=== PATIENT | female | born 1940 | race Caucasian/White ===

== ENCOUNTER 2017-08-09 18:07 | Inpatient (IN) | payer MEDICARE, OTHER ==
[2017-08-09] MEDS ORDERED: Albuterol/Ipratropium 3.0-0.5 MG/3 ML Neb Soln NEB ONE (19:21)
[2017-08-09] MEDS ORDERED: methylPREDNISolone Sodium Succinate 125 MG/2 ML SDV IVPUSH ONE (19:21)
[2017-08-09] MEDS: Sodium Chloride 0.9% 10 ML Syringe FLUSH PRN (19:50)
[2017-08-09] MEDS ORDERED: LORazepam 2 MG/ML SDV IVPUSH ONE (20:55)
--- NOTE | 2017-08-09 21:06 | EDM.PDOC ---
ED HPI GENERAL MEDICAL PROBLEM - General Chief Complaint: Respiratory Problem Stated Complaint: CLINIC SAYS SHE HAS PNEUMONIA Time Seen by Provider: 08/09/17 18:30 Source of Information: Reports: Patient, Family History Limitations: Reports: No Limitations - History of Present Illness INITIAL COMMENTS - FREE TEXT/NARRATIVE: c/o pneumonia pt with c/o cough x 5d productive of a small amount of sputum, no f/c/d, seen at [facility] and had a CxR done, dx with pneumonia, given Rx levofloxacin 500 mg daily and has taken one dose, given NS in clinic for BP 88/50 which is improved to 114/54 supine here altho still with inc'd pulse pressure pt has 2 children who are PAs, her children and think she needs to be admitted, to which I concur pt with multiple commorbidiites no fever at clinic or here, no inc'd WBC, has marked inc'd CRP 24.6 with no comparison which may be here RA altho currently with no RA flare has been quite weak, lost 6 lb in last week (in office 1w ago as well for med check and had her depression med dose inc'd) poor appetite quite anxious, is on an Ativan taper, currently at 0.5 mg BID did not want to be admitted, yet clearly meets criteria and is a high risk for d /c despite neg trop and BNP EKG with GERA and RAD 84, no ST changes labs all reviewed and d/w pt and her , no comparison labs has had flu vax and Pneumovax still smokes 1 ppd, h/o COPD, denies prior pneumonia unclear if infiltrate in LLL is pneumonia or whether she may have a mass Treatments LEGUILLON DEBEADER: Reports: Other Medication(s) Other Treatments LEGUILLON DEBEADER: levaquin - Related Data Allergies Allergy/AdvReac Type Severity Reaction Status Date / Time No Known Allergies Allergy Verified 08/09/17 18:41 Home Meds: Home Meds Folic Acid 1 mg PO DAILY 10/22/13 [History] InFLIXimab [Remicade] 100 mg IV ASDIRECTED 10/22/13 [History] Meloxicam [Mobic] 15 mg PO DAILY 10/22/13 [History] Methotrexate 10 tab PO ASDIRECTED 10/22/13 [History] Omeprazole 20 mg PO DAILY 10/22/13 [History] Simvastatin [Zocor] 10 mg PO DAILY 10/22/13 [History] Acetaminophen [Tylenol Arthritis Pain] 1,300 mg PO BID 10/23/13 [History] Multivitamin with Minerals [One Daily Plus Minerals] 1 each PO DAILY 10/23/13 [ History] LORazepam 0.5 mg PO DAILY PRN 08/09/17 [History] Ranitidine HCl [Ranitidine] 300 mg PO ASDIRECTED 08/09/17 [History] Sennosides 2 mg PO ASDIRECTED 08/09/17 [History] Sertraline [Zoloft] 50 mg PO DAILY 08/09/17 [History] Sertraline [Zoloft] 100 mg PO DAILY 08/09/17 [History] Past Medical History HEENT History: Reports: Cataract Respiratory History: Reports: COPD Gastrointestinal History: Reports: Cholelithiasis, GERD 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: Musculoskeletal History: Reports: Osteoarthritis, RA Psychiatric History: Reports: Anxiety, Depression - Infectious Disease History Infectious Disease History: Reports: Chicken Pox, Measles, Mumps - Past Surgical History HEENT Surgical History: Reports: Cataract Surgery, Tonsillectomy GI Surgical History: Reports: Cholecystectomy Female Surgical History: Reports: Hysterectomy Social & Family History - Family History Family Medical History: Noncontributory - Tobacco Use Smoking Status *Q: Current Every Day Smoker Years of Tobacco use: 40 Packs/Tins Daily: 1 Second Hand Smoke Exposure: Yes - Caffeine Use Caffeine Use: Reports: Soda - Alcohol Use Days Per Week of Alcohol Use: 3 Number of Drinks Per Day: 0 Total Drinks Per Week: 0 - Recreational Drug Use Recreational Drug Use: No ED ROS GENERAL - Review of Systems Review Of Systems: See Below Constitutional: Reports: Weakness, Fatigue, Decreased Appetite, Weight Loss. Denies: Fever, Chills, Night Sweats, Diaphoresis HEENT: Reports: No Symptoms Respiratory: Reports: Shortness of Breath, Cough, Sputum Cardiovascular: Denies: Chest Pain Endocrine: Reports: Fatigue GI/Abdominal: Reports: No Symptoms : Reports: No Symptoms Musculoskeletal: Reports: No Symptoms Skin: Reports: No Symptoms Neurological: Reports: No Symptoms Psychiatric: Reports: Anxiety Hematologic/Lymphatic: Reports: No Symptoms Immunologic: Reports: No Symptoms ED EXAM, GENERAL - Physical Exam Exam: See Below Exam Limited By: No Limitations General Appearance: Alert, WD/WN, Mild Distress, Other (mild dyspnea, mild tachypnea, quite weak, difficulty sitting by herself) Eye Exam: Bilateral Eye: Normal Inspection Ears: Normal External Exam, Normal Canal Nose: Normal Inspection, Normal Mucosa, No Blood Throat/Mouth: Normal Inspection, Normal Lips, Normal Teeth, Normal Gums, Normal Oropharynx, Normal Voice, No Airway Compromise Head: Atraumatic, Normocephalic Neck: Normal Inspection, Supple, Non-Tender, Full Range of Motion Respiratory/Chest: Other (fair AE, crackles at bases with L>R, using accesory muscles, slight purse lip breathing, no retracitons, scattered wheezes, symmetric AE) Cardiovascular: Regular Rate, Rhythm, No Edema, No Gallop, No Rub, Other (2/6 DANY at LSB) GI/Abdominal: Soft, Non-Tender, No Distention Back Exam: Normal Inspection, Full Range of Motion, NT Extremities: Normal Inspection, Normal Range of Motion, Non-Tender, No Pedal Edema Neurological: Alert, Oriented, CN II-XII Intact, Normal Cognition, No Motor/ Sensory Deficits Psychiatric: Normal Affect, Normal Mood Skin Exam: Warm, Dry, Intact, Normal Color, No Rash, Other (mild dec'd turgor UEs) Lymphatic: No Adenopathy Course - Vital Signs Last Recorded V/S: Last Vital Signs Temp 36.5 C 08/09/17 18:42 Pulse 75 08/09/17 18:42 Resp 24 H 08/09/17 18:42 BP 114/54 L 08/09/17 18:42 Pulse Ox 95 08/09/17 18:42 - Orders/Labs/Meds Orders: Active Orders 24 hr Category Date Time Status EKG Documentation Completion [RC] ASDIRECTED Care 08/09/17 19:18 Active RT Aerosol Therapy [RC] ASDIRECTED Care 08/09/17 19:21 Active Chest 2V [CR] Stat Exams 08/09/17 19:21 Taken CULTURE BLOOD [BC] Urgent Lab 08/09/17 19:25 Received CULTURE BLOOD [BC] Urgent Lab 08/09/17 19:31 Received Sodium Chloride 0.9% [Saline Flush] Med 08/09/17 19:29 Active 10 ml FLUSH ASDIRECTED PRN Blood Culture x2 Reflex Set [OM.PC] Urgent Oth 08/09/17 19:24 Ordered Saline Lock Insert [OM.PC] Routine Oth 08/09/17 19:29 Ordered EKG 12 Lead [EK] Routine Ther 08/09/17 19:17 Ordered Medication Orders Sodium Chloride (Saline Flush) 10 ml FLUSH ASDIRECTED PRN PRN Reason: Keep Vein Open Last Admin: 08/09/17 19:50 Dose: 10 ml Labs: Laboratory Tests 08/09/17 08/09/17 08/09/17 Range/Units 19:25 19:25 19:25 WBC 7.8 (4.5-12.0) X10-3/uL RBC 3.20 L (3.23-5.20) x10(6)uL Hgb 12.4 (11.5-15.5) g/dL Hct 34.5 (30.0-51.3) % MCV 107.9 H (80-96) fL MCH 38.8 H (27.7-33.6) pg MCHC 36.0 H (32.2-35.4) g/dL RDW 13.1 (11.5-15.5) % Plt Count 153 (125-369) X10(3)uL MPV 7.4 (7.4-10.4) fL Add Manual Diff Yes Neutrophils % (Manual) 77 (46-82) % Band Neutrophils % 3 (0-6) % Lymphocytes % (Manual) 12 L (13-37) % Monocytes % (Manual) 8 (4-12) % Macrocytosis Many H POC VBG pH (7.31-7.41) POC VBG pCO2 (41-51) mmHG POC VBG HCO3 (23-28) mmol/L POC VBG Total CO2 (24-29) mmol/L POC VBG Base Excess (-2-3) mmol/L Sodium 137 (135-145) mmol/L Potassium 3.2 L (3.5-5.3) mmol/L Chloride 99 L (100-110) mmol/L Carbon Dioxide 28 (21-32) mmol/L BUN 32 H (7-18) mg/dL Creatinine 1.0 (0.55-1.02) mg/dL Est Cr Clr Drug Dosing 39.81 mL/min Estimated GFR (MDRD) 54 L (>60) BUN/Creatinine Ratio 32.0 H (9-20) Glucose 96 (80-116) mg/dL Lactic Acid (0.4-2.2) mmol/L Calcium 8.4 L (8.6-10.2) mg/dL Magnesium (1.8-2.5) mg/dL Total Bilirubin 0.4 (0.1-1.3) mg/dL AST 24 (5-25) IU/L ALT 26 (12-36) U/L Alkaline Phosphatase 59 (56-112) IU/L Troponin I < 0.017 L (<0.017-0.056) ng/mL C-Reactive Protein 24.6 H* (0.5-0.9) mg/dL NT-Pro-B Natriuret Pep 315 (<=450) pg/mL Total Protein 6.5 (6.0-8.0) g/dL Albumin 2.5 L (3.2-4.6) g/dL Globulin 4.0 g/dL Albumin/Globulin Ratio 0.6 08/09/17 08/09/17 08/09/17 Range/Units 19:25 19:25 19:25 WBC (4.5-12.0) X10-3/uL RBC (3.23-5.20) x10(6)uL Hgb (11.5-15.5) g/dL Hct (30.0-51.3) % MCV (80-96) fL MCH (27.7-33.6) pg MCHC (32.2-35.4) g/dL RDW (11.5-15.5) % Plt Count (125-369) X10(3)uL MPV (7.4-10.4) fL Add Manual Diff Neutrophils % (Manual) (46-82) % Band Neutrophils % (0-6) % Lymphocytes % (Manual) (13-37) % Monocytes % (Manual) (4-12) % Macrocytosis POC VBG pH 7.51 H (7.31-7.41) POC VBG pCO2 32.6 L (41-51) mmHG POC VBG HCO3 25.9 (23-28) mmol/L POC VBG Total CO2 27 (24-29) mmol/L POC VBG Base Excess 3 (-2-3) mmol/L Sodium (135-145) mmol/L Potassium (3.5-5.3) mmol/L Chloride (100-110) mmol/L Carbon Dioxide (21-32) mmol/L BUN (7-18) mg/dL Creatinine (0.55-1.02) mg/dL Est Cr Clr Drug Dosing mL/min Estimated GFR (MDRD) (>60) BUN/Creatinine Ratio (9-20) Glucose (80-116) mg/dL Lactic Acid 0.6 (0.4-2.2) mmol/L Calcium (8.6-10.2) mg/dL Magnesium 1.3 L (1.8-2.5) mg/dL Total Bilirubin (0.1-1.3) mg/dL AST (5-25) IU/L ALT (12-36) U/L Alkaline Phosphatase (56-112) IU/L Troponin I (<0.017-0.056) ng/mL C-Reactive Protein (0.5-0.9) mg/dL NT-Pro-B Natriuret Pep (<=450) pg/mL Total Protein (6.0-8.0) g/dL Albumin (3.2-4.6) g/dL Globulin g/dL Albumin/Globulin Ratio Meds: Medications Generic Name Dose Route Start Last Admin Trade Name Freq PRN Reason Stop Dose Admin Sodium Chloride 10 ml 08/09/17 19:29 08/09/17 19:50 Saline Flush FLUSH 10 ml ASDIRECTED PRN Administration Keep Vein Open Discontinued Medications Generic Name Dose Route Start Last Admin Trade Name Freq PRN Reason Stop Dose Admin Albuterol/Ipratropium 3 ml 08/09/17 19:21 08/09/17 20:03 Duoneb 3.0-0.5 Mg/3 Ml NEB 08/09/17 19:22 3 ml ONETIME ONE Administration Lorazepam 1 mg 08/09/17 20:55 Ativan IVPUSH 08/09/17 20:56 ONETIME ONE Methylprednisolone Sodium Succinate 80 mg 08/09/17 19:21 08/09/17 19:52 Solu-Medrol IVPUSH 08/09/17 19:22 80 mg ONETIME ONE Administration Departure - Departure Time of Disposition: 21:12 Disposition: Admitted As Inpatient 66 Condition: Fair Clinical Impression: Left lower lobe pneumonia, Lung infiltrate, COPD exacerbation, Hyponatremia, Hypomagnesemia, Weight loss, Immunosuppressed status, Current smoker, Dehydration, moderate, Hypotension, Hypoalbuminemia, Elevated C-reactive protein (CRP), Elevated BUN, Macrocytosis without anemia, Weakness generalized - Discharge Information Referrals: Bailey Rainey, DIGITIZER OPERATOR [Primary Care Provider] - - My Orders Last 24 Hours: My Active Orders 08/09/17 19:17 EKG 12 Lead [EK] Routine 08/09/17 19:18 EKG Documentation Completion [RC] ASDIRECTED 08/09/17 19:21 RT Aerosol Therapy [RC] ASDIRECTED Chest 2V [CR] Stat 08/09/17 19:24 Blood Culture x2 Reflex Set [OM.PC] Urgent 08/09/17 19:25 CULTURE BLOOD [BC] Urgent 08/09/17 19:29 Sodium Chloride 0.9% [Saline Flush] 10 ml FLUSH ASDIRECTED PRN Saline Lock Insert [OM.PC] Routine 08/09/17 19:31 CULTURE BLOOD [BC] Urgent - Assessment/Plan Last 24 Hours: My Active Orders 08/09/17 19:17 EKG 12 Lead [EK] Routine 08/09/17 19:18 EKG Documentation Completion [RC] ASDIRECTED 08/09/17 19:21 RT Aerosol Therapy [RC] ASDIRECTED Chest 2V [CR] Stat 08/09/17 19:24 Blood Culture x2 Reflex Set [OM.PC] Urgent 08/09/17 19:25 CULTURE BLOOD [BC] Urgent 08/09/17 19:29 Sodium Chloride 0.9% [Saline Flush] 10 ml FLUSH ASDIRECTED PRN Saline Lock Insert [OM.PC] Routine 08/09/17 19:31 CULTURE BLOOD [BC] Urgent
[2017-08-09] MEDS ORDERED: Albuterol 0.083% 2.5 MG/3 ML Neb Soln NEB PRN (21:12)
[2017-08-09] MEDS ORDERED: Acetaminophen 325 MG Tab PO PRN (21:12)
[2017-08-09] MEDS ORDERED: Zolpidem 5 MG Tab PO PRN (21:12)
[2017-08-09] MEDS ORDERED: Ondansetron 4 MG/2 ML SDV IV PRN (21:12)
[2017-08-09] MEDS ORDERED: LORazepam 0.5 MG Tab PO PRN (21:23)
[2017-08-09] MEDS ORDERED: Potassium Chloride 20 MEQ Tab.ER PO ONE (21:29)
[2017-08-09] MEDS ORDERED: RANITIDINE HCL 300 MG PO SCH (21:30)
[2017-08-09] MEDS ORDERED: Levofloxacin 500 MG Tab PO SCH (21:30)
[2017-08-09] MEDS ORDERED: Sennosides 8.6 MG Tab PO SCH (21:30)
[2017-08-09] MEDS ORDERED: Methotrexate 2.5 MG Tab PO SCH (21:30)
[2017-08-09] MEDS ORDERED: Magnesium Sulfate/Water 50 ML ONE (21:40)
[2017-08-09] MEDS: Sodium Chloride 0.9% 1,000 ML IV SCH (21:55)
[2017-08-09] MEDS: Enoxaparin 30 MG/0.3 ML Syringe SUBCUT SCH (21:58)
[2017-08-09] MEDS: Acetaminophen 650 MG Tab.ER PO SCH (22:01)
[2017-08-09] MEDS ORDERED: Magnesium Sulfate/Water 50 ML IV ONE (23:00)
[2017-08-10] MEDS ORDERED: Levofloxacin/Dextrose 5%-Water 750 MG in Premix Bag 1 BAG IV SCH (07:45)
--- NOTE | 2017-08-10 07:46 | PCM.HP ---
H&P History of Present Illness - General Date of Service: 08/10/17 Admit Problem/Dx: Admission Diagnosis/Problem Admission Diagnosis/Problem Pneumonia - History of Present Illness Initial Comments - Free Text/Narative: Pleasant 77-year-old female who resides in her own home with her who is diligent her cares. States she has been having increased weakness with a cough that is productive change in sputum color roughly the last week. She wasn't having any fevers or chills by her appetite is significantly decreased and she wasn't taking in much for fluids. Respirations became slightly more labored and she was taken to her local [facility] where chest x-ray was consistent with early onset pneumonia in the setting of COPD. She was started on oral Levaquin 500 mg daily. She was sent home and is taken one dose of her antibiotic and over the course of the evening she does not feel any improvement and also became more weak when she presented back to the clinic. At that point she was noted to be slightly hypotensive and received a normal saline bolus while at the clinic due to a low blood pressure reported as 88/50 mmHg that did improve to greater than 115 systolic. There was no significant tachycardia or bradycardia noted on EKG and sats remained in the low 90s. That point, it was deemed she be evaluated in the ER where his CRP was noted to be elevated to 24.6 with a background setting of rheumatoid arthritis. She's remained afebrile with normal white count. According to family depression has worsened over the last several weeks for which she has had significant decreased appetite along with somnolence. This is resulted in roughly a 6 pound weight loss in the last week. She is currently being titrated on sertraline with a recent increased dose from 100 mg daily to 150 mg daily. She also has underlying anxiety for which she has been on lorazepam long-term however this is being tapered as her SSRI is increased. Severe comorbidities include COPD with continued tobacco smoking a pack per day , known hyperinflation and air trapping of the lungs, cardiovascular disease, rheumatologic disease, malnutrition, depression worsening with underlying anxiety, active infection, mild dehydration, iatrogenic suppression and polypharmacy. - Related Data Allergies/Adverse Reactions: Allergies Allergy/AdvReac Type Severity Reaction Status Date / Time No Known Allergies Allergy Verified 08/09/17 18:41 Home Medications: Home Meds Folic Acid 1 mg PO DAILY 10/22/13 [History] InFLIXimab [Remicade] 400 mg IV ASDIRECTED 10/22/13 [History] Meloxicam [Mobic] 15 mg PO DAILY 10/22/13 [History] Methotrexate 17.5 mg PO VICENTE 10/22/13 [History] Omeprazole 20 mg PO ACBREAKFAST 10/22/13 [History] Simvastatin [Zocor] 10 mg PO DAILY@1800 10/22/13 [History] Acetaminophen [Tylenol Arthritis Pain] 1,300 mg PO BID PRN 10/23/13 [History] LORazepam 0.5 mg PO DAILY PRN 08/09/17 [History] Ranitidine HCl [Ranitidine] 300 mg PO BEDTIME 08/09/17 [History] Sertraline [Zoloft] 150 mg PO DAILY@1800 08/09/17 [History] Advair Hfa 115/21 2 puff IH BID 08/10/17 [History] Beta-Carotene(A) W-C & E/Min [Vision Vitamins] 1 tab PO DAILY 08/10/17 [History] Calcium Carbonate/Vitamin D3 [Calcium 500-Vit D3 600 Caplet] 1 tab PO BIDMEALS 08/10/17 [History] Cyanocobalamin (Vitamin B-12) [Vitamin B-12] 1,000 mcg PO DAILY 08/10/17 [ History] Magnesium Oxide [Magnesium] 400 mg PO DAILY 08/10/17 [History] Sennosides/Docusate Sodium [Senna S Tablet] 2 tab PO DAILY PRN 08/10/17 [History ] Past Medical History HEENT History: Reports: Cataract Respiratory History: Reports: COPD Gastrointestinal History: Reports: Cholelithiasis, [employer] History: Reports: Musculoskeletal History: Reports: Osteoarthritis, RA Psychiatric History: Reports: Anxiety, Depression - Infectious Disease History Infectious Disease History: Reports: Chicken Pox, Measles, Mumps - Past Surgical History HEENT Surgical History: Reports: Cataract Surgery, Tonsillectomy GI Surgical History: Reports: Cholecystectomy Female Surgical History: Reports: Hysterectomy Social & Family History - Family History Family Medical History: Noncontributory - Tobacco Use Smoking Status *Q: Light Tobacco Smoker Years of Tobacco use: 40 Packs/Tins Daily: 2 Second Hand Smoke Exposure: No - Caffeine Use Caffeine Use: Reports: Coffee, Soda Other Caffeine Use: 2-4 per day - Alcohol Use Days Per Week of Alcohol Use: 3 Number of Drinks Per Day: 0 Total Drinks Per Week: 0 - Recreational Drug Use Recreational Drug Use: No H&P Review of Systems - Review of Systems: Review Of Systems: See Below Review of Systems Comment:: Constitutional: Reports: Weakness, Fatigue, Decreased Appetite, Weight Loss. Denies: Fever, Chills, Night Sweats, Diaphoresis HEENT: Reports: No Symptoms Respiratory: Reports: Shortness of Breath, Cough, Sputum Cardiovascular: Denies: Chest Pain Endocrine: Reports: Fatigue GI/Abdominal: Reports: No Symptoms : Reports: No Symptoms Musculoskeletal: Reports: No Symptoms Skin: Reports: No Symptoms Neurological: Reports: No Symptoms Psychiatric: Reports: Anxiety, depression Hematologic/Lymphatic: Reports: No Symptoms Immunologic: Reports: No joint swelling, aching, warmth or redness Exam - Exam Exam: See Below - Vital Signs Vital Signs: Last Vital Signs Temp 97 F 08/10/17 04:00 Pulse 74 08/10/17 04:00 Resp 16 08/10/17 04:00 BP 111/63 08/10/17 04:00 Pulse Ox 98 08/10/17 04:00 Weight: 54.93 kg - Exam Physical Exam Comments:: Exam Limited By: No Limitations; and son in room also provide information and medication review with printout from clinic. General Appearance: Alert, mild dyspnea, mild tachypnea, quite weak, difficulty sitting by herself) Eye Exam: Bilateral Eye: Normal Inspection Nose: No Blood Throat/Mouth: Normal Oropharynx, Normal Voice, No Airway Compromise, Dry MM Head: Atraumatic, Normocephalic Neck: Normal Inspection, Supple, Non-Tender, Full Range of Motion, trachea midline Respiratory/Chest: Diminished aeration throughout due to poor inspiratory effort , crackles at bases with L>R, this time with oxygen on she is not using accessory muscles and there are no retractions. She does have minimal scattered expiratory wheezes. No friction rub or chest wall tenderness. Cardiovascular: Regular Rate, Rhythm, No Edema, No Gallop, No Rub, (2/6 DANY at LSB) GI/Abdominal: Soft, Non-Tender, No Distention, normal bowel sounds throughout Back Exam: NT Extremities: Non-Tender, No Pedal Edema Neurological: Alert, Oriented, CN II-XII Intact, Normal Cognition, No Motor/ Sensory Deficits Psychiatric: Slightly flattened affect and depressed mood. Pleasant and conversant. Skin Exam: Warm, Dry, Intact, Normal Color, No Rash, (mild dec'd turgor UEs) Lymphatic: No Adenopathy - Patient Data Lab Results Last 24 hrs: Laboratory Results - last 24 hr 08/09/17 08/09/17 08/09/17 Range/Units 19:25 19:25 19:25 WBC 7.8 (4.5-12.0) X10-3/uL RBC 3.20 L (3.23-5.20) x10(6)uL Hgb 12.4 (11.5-15.5) g/dL Hct 34.5 (30.0-51.3) % MCV 107.9 H (80-96) fL MCH 38.8 H (27.7-33.6) pg MCHC 36.0 H (32.2-35.4) g/dL RDW 13.1 (11.5-15.5) % Plt Count 153 (125-369) X10(3)uL MPV 7.4 (7.4-10.4) fL Add Manual Diff Yes Neutrophils % (Manual) 77 (46-82) % Band Neutrophils % 3 (0-6) % Lymphocytes % (Manual) 12 L (13-37) % Monocytes % (Manual) 8 (4-12) % Macrocytosis Many H POC VBG pH (7.31-7.41) POC VBG pCO2 (41-51) mmHG POC VBG HCO3 (23-28) mmol/L POC VBG Total CO2 (24-29) mmol/L POC VBG Base Excess (-2-3) mmol/L Sodium 137 (135-145) mmol/L Potassium 3.2 L (3.5-5.3) mmol/L Chloride 99 L (100-110) mmol/L Carbon Dioxide 28 (21-32) mmol/L BUN 32 H (7-18) mg/dL Creatinine 1.0 (0.55-1.02) mg/dL Est Cr Clr Drug Dosing 39.81 mL/min Estimated GFR (MDRD) 54 L (>60) BUN/Creatinine Ratio 32.0 H (9-20) Glucose 96 (80-116) mg/dL Lactic Acid (0.4-2.2) mmol/L Calcium 8.4 L (8.6-10.2) mg/dL Magnesium (1.8-2.5) mg/dL Total Bilirubin 0.4 (0.1-1.3) mg/dL AST 24 (5-25) IU/L ALT 26 (12-36) U/L Alkaline Phosphatase 59 (56-112) IU/L Troponin I < 0.017 L (<0.017-0.056) ng/mL C-Reactive Protein 24.6 H* (0.5-0.9) mg/dL NT-Pro-B Natriuret Pep 315 (<=450) pg/mL Total Protein 6.5 (6.0-8.0) g/dL Albumin 2.5 L (3.2-4.6) g/dL Globulin 4.0 g/dL Albumin/Globulin Ratio 0.6 TSH, Ultra Sensitive (0.36-3.74) IU/mL 08/09/17 08/09/17 08/09/17 Range/Units 19:25 19:25 19:25 WBC (4.5-12.0) X10-3/uL RBC (3.23-5.20) x10(6)uL Hgb (11.5-15.5) g/dL Hct (30.0-51.3) % MCV (80-96) fL MCH (27.7-33.6) pg MCHC (32.2-35.4) g/dL RDW (11.5-15.5) % Plt Count (125-369) X10(3)uL MPV (7.4-10.4) fL Add Manual Diff Neutrophils % (Manual) (46-82) % Band Neutrophils % (0-6) % Lymphocytes % (Manual) (13-37) % Monocytes % (Manual) (4-12) % Macrocytosis POC VBG pH 7.51 H (7.31-7.41) POC VBG pCO2 32.6 L (41-51) mmHG POC VBG HCO3 25.9 (23-28) mmol/L POC VBG Total CO2 27 (24-29) mmol/L POC VBG Base Excess 3 (-2-3) mmol/L Sodium (135-145) mmol/L Potassium (3.5-5.3) mmol/L Chloride (100-110) mmol/L Carbon Dioxide (21-32) mmol/L BUN (7-18) mg/dL Creatinine (0.55-1.02) mg/dL Est Cr Clr Drug Dosing mL/min Estimated GFR (MDRD) (>60) BUN/Creatinine Ratio (9-20) Glucose (80-116) mg/dL Lactic Acid 0.6 (0.4-2.2) mmol/L Calcium (8.6-10.2) mg/dL Magnesium 1.3 L (1.8-2.5) mg/dL Total Bilirubin (0.1-1.3) mg/dL AST (5-25) IU/L ALT (12-36) U/L Alkaline Phosphatase (56-112) IU/L Troponin I (<0.017-0.056) ng/mL C-Reactive Protein (0.5-0.9) mg/dL NT-Pro-B Natriuret Pep (<=450) pg/mL Total Protein (6.0-8.0) g/dL Albumin (3.2-4.6) g/dL Globulin g/dL Albumin/Globulin Ratio TSH, Ultra Sensitive (0.36-3.74) IU/mL 08/10/17 08/10/17 08/10/17 Range/Units 06:05 06:05 06:05 WBC 5.0 (4.5-12.0) X10-3/uL RBC 3.17 L (3.23-5.20) x10(6)uL Hgb 12.2 (11.5-15.5) g/dL Hct 33.7 (30.0-51.3) % MCV 106.5 H (80-96) fL MCH 38.5 H (27.7-33.6) pg MCHC 36.1 H (32.2-35.4) g/dL RDW 12.9 (11.5-15.5) % Plt Count 148 (125-369) X10(3)uL MPV 7.7 (7.4-10.4) fL Add Manual Diff Yes Neutrophils % (Manual) (46-82) % Band Neutrophils % (0-6) % Lymphocytes % (Manual) (13-37) % Monocytes % (Manual) (4-12) % Macrocytosis POC VBG pH (7.31-7.41) POC VBG pCO2 (41-51) mmHG POC VBG HCO3 (23-28) mmol/L POC VBG Total CO2 (24-29) mmol/L POC VBG Base Excess (-2-3) mmol/L Sodium 139 (135-145) mmol/L Potassium 3.9 (3.5-5.3) mmol/L Chloride 102 (100-110) mmol/L Carbon Dioxide 30 (21-32) mmol/L BUN 30 H (7-18) mg/dL Creatinine 0.9 (0.55-1.02) mg/dL Est Cr Clr Drug Dosing 45.20 mL/min Estimated GFR (MDRD) > 60 (>60) BUN/Creatinine Ratio 33.3 H (9-20) Glucose 158 H (80-116) mg/dL Lactic Acid (0.4-2.2) mmol/L Calcium 8.5 L (8.6-10.2) mg/dL Magnesium (1.8-2.5) mg/dL Total Bilirubin (0.1-1.3) mg/dL AST (5-25) IU/L ALT (12-36) U/L Alkaline Phosphatase (56-112) IU/L Troponin I < 0.017 L (<0.017-0.056) ng/mL C-Reactive Protein (0.5-0.9) mg/dL NT-Pro-B Natriuret Pep (<=450) pg/mL Total Protein (6.0-8.0) g/dL Albumin (3.2-4.6) g/dL Globulin g/dL Albumin/Globulin Ratio TSH, Ultra Sensitive (0.36-3.74) IU/mL 08/10/17 Range/Units 06:05 WBC (4.5-12.0) X10-3/uL RBC (3.23-5.20) x10(6)uL Hgb (11.5-15.5) g/dL Hct (30.0-51.3) % MCV (80-96) fL MCH (27.7-33.6) pg MCHC (32.2-35.4) g/dL RDW (11.5-15.5) % Plt Count (125-369) X10(3)uL MPV (7.4-10.4) fL Add Manual Diff Neutrophils % (Manual) (46-82) % Band Neutrophils % (0-6) % Lymphocytes % (Manual) (13-37) % Monocytes % (Manual) (4-12) % Macrocytosis POC VBG pH (7.31-7.41) POC VBG pCO2 (41-51) mmHG POC VBG HCO3 (23-28) mmol/L POC VBG Total CO2 (24-29) mmol/L POC VBG Base Excess (-2-3) mmol/L Sodium (135-145) mmol/L Potassium (3.5-5.3) mmol/L Chloride (100-110) mmol/L Carbon Dioxide (21-32) mmol/L BUN (7-18) mg/dL Creatinine (0.55-1.02) mg/dL Est Cr Clr Drug Dosing mL/min Estimated GFR (MDRD) (>60) BUN/Creatinine Ratio (9-20) Glucose (80-116) mg/dL Lactic Acid (0.4-2.2) mmol/L Calcium (8.6-10.2) mg/dL Magnesium (1.8-2.5) mg/dL Total Bilirubin (0.1-1.3) mg/dL AST (5-25) IU/L ALT (12-36) U/L Alkaline Phosphatase (56-112) IU/L Troponin I (<0.017-0.056) ng/mL C-Reactive Protein (0.5-0.9) mg/dL NT-Pro-B Natriuret Pep (<=450) pg/mL Total Protein (6.0-8.0) g/dL Albumin (3.2-4.6) g/dL Globulin g/dL Albumin/Globulin Ratio TSH, Ultra Sensitive 1.10 (0.36-3.74) IU/mL Result Diagrams: 08/11/17 06:40 08/11/17 06:40 - Problem List (1) Left lower lobe pneumonia SNOMED Code(s): 607672972 ICD Code: J18.1 - LOBAR PNEUMONIA, UNSPECIFIED ORGANISM Status: Acute Current Visit: Yes (2) COPD exacerbation SNOMED Code(s): 137907648 ICD Code: J44.1 - CHRONIC OBSTRUCTIVE PULMONARY DISEASE W (ACUTE) EXACERBATION Status: Acute Current Visit: Yes (3) Dehydration, moderate SNOMED Code(s): 4545339247955 ICD Code: E86.0 - DEHYDRATION Status: Acute Current Visit: Yes (4) Hypotension SNOMED Code(s): 50238024 ICD Code: I95.9 - HYPOTENSION, UNSPECIFIED Status: Acute Current Visit: Yes (5) Immunosuppressed status SNOMED Code(s): 98541776 ICD Code: D89.9 - DISORDER INVOLVING THE IMMUNE MECHANISM, UNSPECIFIED Status: Acute Current Visit: Yes (6) Hyponatremia SNOMED Code(s): 09183734 ICD Code: E87.1 - HYPO-OSMOLALITY AND HYPONATREMIA Status: Acute Current Visit: Yes (7) Hypomagnesemia SNOMED Code(s): 940470452 ICD Code: E83.42 - HYPOMAGNESEMIA Status: Acute Current Visit: Yes (8) Weight loss SNOMED Code(s): 97386530, 056589773 ICD Code: R63.4 - ABNORMAL WEIGHT LOSS Status: Acute Current Visit: Yes (9) Current smoker SNOMED Code(s): 09427152 ICD Code: F17.200 - NICOTINE DEPENDENCE, UNSPECIFIED, UNCOMPLICATED Status : Acute Current Visit: Yes (10) Hypoalbuminemia SNOMED Code(s): 547150847 ICD Code: E88.09 - OTH DISORDERS OF PLASMA-PROTEIN METABOLISM, NEC Status: Acute Current Visit: Yes (11) Elevated C-reactive protein (CRP) SNOMED Code(s): 606634351717723 ICD Code: R79.82 - ELEVATED C-REACTIVE PROTEIN (CRP) Status: Acute Current Visit: Yes (12) Palliative care status SNOMED Code(s): 858490437 ICD Code: Z51.5 - ENCOUNTER FOR PALLIATIVE CARE Status: Acute Current Visit: Yes (13) Elevated BUN SNOMED Code(s): 078983521 ICD Code: R79.9 - ABNORMAL FINDING OF BLOOD CHEMISTRY, UNSPECIFIED Status: Acute Current Visit: Yes (14) Macrocytosis without anemia SNOMED Code(s): 742144448 ICD Code: D75.89 - OTHER SPECIFIED DISEASES OF BLOOD AND BLOOD-FORMING ORGANS Status: Acute Current Visit: Yes (15) Weakness generalized SNOMED Code(s): 66687420 ICD Code: R53.1 - WEAKNESS Status: Acute Current Visit: Yes Problem List Initiated/Reviewed/Updated: Yes Orders Last 24hrs: Active Orders 24 hr Category Date Time Status Patient Status [ADT] Routine ADT 08/09/17 23:28 Active Communication Order [RC] ASDIRECTED Care 08/10/17 07:40 Ordered Dietary Supplements [RC] 10,14 Care 08/09/17 21:26 Active Notify Provider [RC] PRN Care 08/10/17 07:40 Ordered Oxygen Therapy [RC] PRN Care 08/09/17 21:19 Active Pneumonia Education [RC] DAILY Care 08/10/17 07:40 Ordered Pulse Oximetry [RC] CONTINUOUS Care 08/10/17 07:40 Ordered RT Aerosol Therapy [RC] ASDIRECTED Care 08/09/17 19:21 Active RT Incentive Spirometry [RC] Q2HWA Care 08/10/17 07:40 Ordered Telemetry Monitoring [Cardiac Monitoring] [RC] .As Care 08/09/17 23:30 Active Directed Vital Signs [RC] 04,08,12,16,20,00 Care 08/09/17 21:19 Active Regular Diet [DIET] Diet 08/10/17 Breakfast Active Chest 2V [CR] Stat Exams 08/09/17 19:21 Taken BASIC METABOLIC PANEL,BMP [CHEM] DAILY Lab 08/11/17 06:00 Ordered BASIC METABOLIC PANEL,BMP [CHEM] DAILY Lab 08/12/17 06:00 Ordered BASIC METABOLIC PANEL,BMP [CHEM] DAILY Lab 08/13/17 06:00 Ordered BASIC METABOLIC PANEL,BMP [CHEM] DAILY Lab 08/14/17 06:00 Ordered BLOOD GAS ARTERIAL [BG] Routine Lab 08/10/17 07:40 Ordered CBC WITH AUTO DIFF [HEME] DAILY Lab 08/10/17 06:05 Results CBC WITH AUTO DIFF [HEME] DAILY Lab 08/11/17 06:00 Ordered CULTURE BLOOD [BC] Urgent Lab 08/09/17 19:25 Received CULTURE BLOOD [BC] Urgent Lab 08/09/17 19:31 Received Acetaminophen [Tylenol Arthritis Pain] Med 08/09/17 21:30 Active 1,300 mg PO BID Acetaminophen [Tylenol] Med 08/09/17 21:12 Active 650 mg PO Q4H PRN Albuterol [Proventil Neb Soln] Med 08/09/17 21:12 Active 2.5 mg NEB Q4H PRN Albuterol/Ipratropium [DuoNeb 3.0-0.5 MG/3 ML] Med 08/10/17 07:00 Active 3 ml NEB QIDRT Enoxaparin [Lovenox] Med 08/09/17 21:15 Active 30 mg SUBCUT Q24H Folic Acid Med 08/10/17 09:00 Active 1 mg PO DAILY InFLIXimab [Remicade] Med 08/09/17 21:30 Pending 100 mg IV ASDIRECTED LORazepam [Ativan] Med 08/09/17 21:23 Active 0.5 mg PO BID PRN Levofloxacin [Levaquin] Med 08/10/17 12:00 Active 500 mg PO Q24H Levofloxacin/Dextrose 5%-Water [Levaquin in D5W 750 MG/ Med 08/10/17 07:45 Ordered 150 ML] 750 mg Premix Bag 1 bag IV Q48H Meloxicam [Mobic] Med 08/10/17 09:00 Active 15 mg PO DAILY Methotrexate Med 08/09/17 21:30 Pending DOSE mg PO ASDIRECTED Multivitamins/Minerals [Vitamins and Minerals] Med 08/10/17 09:00 Active 1 tab PO DAILY Ondansetron [Zofran] Med 08/09/17 21:12 Active 4 mg IV Q4H PRN Pantoprazole [ProTONIX] Med 08/10/17 07:30 Active 40 mg PO ACBREAKFAST Potassium Chloride [Klor-Con M20] Med 08/10/17 09:00 Active 20 meq PO BID Ranitidine HCl [Ranitidine] Med 08/09/17 21:30 Active 300 mg PO ASDIRECTED Sennosides [Senna] Med 08/09/17 21:30 Active 2 mg PO ASDIRECTED Sertraline [Zoloft] Med 08/10/17 09:00 Active 100 mg PO DAILY Simvastatin [Zocor] Med 08/10/17 09:00 Active 10 mg PO DAILY Sodium Chloride 0.9% [Normal Saline] 1,000 ml Med 08/09/17 21:15 Active IV ASDIRECTED Sodium Chloride 0.9% [Saline Flush] Med 08/09/17 19:29 Active 10 ml FLUSH ASDIRECTED PRN Zolpidem [Ambien] Med 08/09/17 21:12 Active 5 mg PO BEDTIME PRN methylPREDNISolone Sod Succ [Solu-MEDROL] Med 08/10/17 07:45 Ordered 62.5 mg IV Q6H Blood Culture x2 Reflex Set [OM.PC] Urgent Oth 08/09/17 19:24 Ordered Saline Lock Insert [OM.PC] Routine Oth 08/09/17 19:29 Ordered Resuscitation Status Routine Resus Stat 08/09/17 21:12 Ordered EKG 12 Lead [EK] Routine Ther 08/09/17 19:17 Ordered Medication Orders Acetaminophen (Tylenol) 650 mg PO Q4H PRN PRN Reason: Pain (Mild 1-3)/fever Acetaminophen (Tylenol Arthritis Pain) 1,300 mg PO BID [facility] Last Admin: 08/09/17 22:01 Dose: 1,300 mg Albuterol (Proventil Neb Soln) 2.5 mg NEB Q4H PRN PRN Reason: Shortness of Breath Albuterol/Ipratropium (Duoneb 3.0-0.5 Mg/3 Ml) 3 ml NEB QIDRT [facility] Enoxaparin Sodium (Lovenox) 30 mg SUBCUT Q24H [facility] Last Admin: 08/09/17 21:58 Dose: 30 mg Folic Acid (Folic Acid) 1 mg PO DAILY [facility] Sodium Chloride (Normal Saline) 1,000 mls @ 75 mls/hr IV ASDIRECTED [facility] Last Admin: 08/09/17 21:55 Dose: 75 mls/hr Levofloxacin/Dextrose 750 mg/ (Premix) 150 mls @ 150 mls/hr IV Q48H [facility] Infliximab (Remicade) 100 mg IV ASDIRECTED [facility] Levofloxacin (Levaquin) 500 mg PO Q24H [facility] Lorazepam (Ativan) 0.5 mg PO BID PRN PRN Reason: Anxiety Meloxicam (Mobic) 15 mg PO DAILY [facility] Methotrexate (Methotrexate) mg PO ASDIRECTED [facility] Methylprednisolone Sodium Succinate (Solu-Medrol) 62.5 mg IV Q6H [facility] Multivitamins/Minerals (Vitamins And Minerals) 1 tab PO DAILY [facility] Non-Formulary Medication (Ranitidine Hcl [Ranitidine]) 300 mg PO ASDIRECTED [facility] Ondansetron HCl (Zofran) 4 mg IV Q4H PRN PRN Reason: Nausea/Vomiting Pantoprazole Sodium (Protonix) 40 mg PO ACBREAKFAST [facility] Potassium Chloride (Klor-Con M20) 20 meq PO BID [facility] Stop: 08/12/17 09:00 Senna (Senna) 2 mg PO ASDIRECTED [facility] Sertraline HCl (Zoloft) 100 mg PO DAILY [facility] Simvastatin (Zocor) 10 mg PO DAILY [facility] Sodium Chloride (Saline Flush) 10 ml FLUSH ASDIRECTED PRN PRN Reason: Keep Vein Open Last Admin: 08/09/17 19:50 Dose: 10 ml Zolpidem Tartrate (Ambien) 5 mg PO BEDTIME PRN PRN Reason: Sleep Assessment/Plan Comment:: Admit to medical surgical. we'll switch oral Levaquin to IV q48 hours secondary to renal function. We'll also gently hydrate her and encourage oral nutrition. We'll get vitals every 4h with telemetry temporary. repeat troponin to ensure - 2 sets. if no events will DC telemetry. She will get RT for nebulizations, incentive spirometry as well as an IV steroid burst with taper. Supplemental oxygen to wean down to keep respirations less than 20 and oxygen sats greater than 90%. Extensive education regarding use of tobacco and the importance of cessation. Nutrition consult for malnutrition. PT OT for strengthening and ADLs along with discharge planning. Follow electrolytes and repeat as necessary. Supplement as necessary. Will not make any changes to her current SSRI as this has recently been increased, will continue her current anxiolytic and make adjustments if needed. At the present time she wishes to remain full CODE STATUS however I did discuss that I do not believe she would benefit from any form of mechanical ventilation or CPR as this would only worsen comorbidities should she survive a full resuscitative effort. Last dose of Remicade will be confirmed. Will continue GI prophylaxis and DVT prophylaxis as appropriate. Anticipate hospital stay additional 24-48 hours with the potential need for swing bed post discharge from inpatient status. All the above was discussed with the patient and her along with her son who are present at the bedside. Questions were answered. Additional information was provided and we will proceed accordingly.
[2017-08-10] MEDS ORDERED: methylPREDNISolone Sodium Succinate 125 MG/2 ML SDV IV SCH (08:00)
[2017-08-10] MEDS: Albuterol/Ipratropium 3.0-0.5 MG/3 ML Neb Soln NEB SCH ×4 (08:27→21:05)
[2017-08-10] MEDS ORDERED: Non-Formulary Medication 1 Each (Multivitamin With Minerals [One Daily Plus Minerals] 1 EA PO SCH (09:00)
[2017-08-10] MEDS ORDERED: Simvastatin 10 MG Tab PO SCH (09:00)
[2017-08-10] MEDS ORDERED: Non-Formulary Medication 1 Each (Omeprazole [Omeprazole] 20 MG) PO SCH (09:00)
[2017-08-10] MEDS ORDERED: Sertraline 100 MG Tab PO SCH (09:00)
[2017-08-10] MEDS: Pantoprazole 40 MG Tab.CR PO SCH (09:39)
[2017-08-10] MEDS: Folic Acid 1 MG Tab PO SCH (09:39)
[2017-08-10] MEDS: Multivitamins, Therapeutic with Minerals Tab PO SCH (09:40)
[2017-08-10] MEDS: Potassium Chloride 20 MEQ Tab.ER PO SCH ×2 (09:40→21:06)
[2017-08-10] MEDS: Sodium Chloride 0.9% 1,000 ML IV SCH (11:01)
[2017-08-10] MEDS ORDERED: Levofloxacin 500 MG Tab PO SCH (12:00)
--- NOTE | 2017-08-10 12:29 | CR ---
INDICATION: Short of breath, weakness. CHEST: PA and lateral views of the chest were obtained, 08/09/2017, and revealed somewhat flattened diaphragm leaves, prominent AP diameter, and hyperaeration compatible with COPD. Increased markings posteriorly at the lung base, raise question of minimal patchy bronchopneumonia in that area. No gross consolidating pneumonia or definite effusion was seen. The heart did not appear enlarged. The aorta is tortuous with calcification in the arch. Somewhat diminished bone density raises question of osteoporosis - correlate clinically. A dextroconcave scoliosis of the lower thoracic spine is noted, apparently compensatory to a dextroconvex rotoscoliosis of the lumbar spine. IMPRESSION: 1. Question minimal patchy pneumonia at the posterior lung base, most likely on the right - correlate clinically. 2. COPD. 3. ASD aorta. 4. Scoliosis and possible osteoporosis. MTDD
[2017-08-10] MEDS: D5 1/2 NS w/ 20 mEq/L KCl 1,000 ML IV SCH (14:22)
[2017-08-10] MEDS: Acetaminophen 650 MG Tab.ER PO SCH (15:21)
[2017-08-10] MEDS: Simvastatin 10 MG Tab PO SCH (17:17)
[2017-08-10] MEDS: Sertraline 50 MG Tab PO SCH (17:17)
[2017-08-10] MEDS: methylPREDNISolone Sodium Succinate 125 MG/2 ML SDV IV SCH ×2 (17:18→22:45)
[2017-08-10] MEDS: Enoxaparin 30 MG/0.3 ML Syringe SUBCUT SCH (21:06)
[2017-08-10] MEDS: Famotidine 20 MG Tab PO SCH (21:06)
[2017-08-11] MEDS: D5 1/2 NS w/ 20 mEq/L KCl 1,000 ML IV SCH ×2 (03:41→20:00)
[2017-08-11] MEDS: methylPREDNISolone Sodium Succinate 125 MG/2 ML SDV IV SCH ×3 (05:20→21:40)
[2017-08-11] MEDS: Albuterol/Ipratropium 3.0-0.5 MG/3 ML Neb Soln NEB SCH ×4 (07:18→21:39)
--- NOTE | 2017-08-11 07:44 | PCM.PN ---
- General Info Date of Service: 08/11/17 Functional Status: Reports: Tolerating Diet (poor intake however), Urinating, Incentive Spirometry - Review of Systems General: Denies: Fever Pulmonary: Reports: Shortness of Breath, Wheezing Cardiovascular: Reports: Dyspnea on Exertion. Denies: Chest Pain, Edema Gastrointestinal: Reports: Decreased Appetite. Denies: Difficulty Swallowing, Nausea, Vomiting Genitourinary: Reports: No Symptoms Musculoskeletal: Reports: No Symptoms Skin: Reports: No Symptoms Neurological: Reports: Tremors, Weakness Psychiatric: Reports: Anxiety - Patient Data Vitals - Most Recent: Last Vital Signs Temp 98.3 F 08/11/17 05:00 Pulse 88 08/11/17 07:28 Resp 17 08/11/17 05:00 BP 132/60 08/11/17 01:05 Pulse Ox 94 L 2L NC 08/11/17 07:20 Weight - Most Recent: 54.93 kg I&O - Last 24 Hours: Intake & Output 08/10/17 08/11/17 08/11/17 22:59 06:59 14:59 Intake Total 570 587 Balance 570 587 Lab Results Last 24 Hours: Laboratory Results - last 24 hr 08/10/17 08/10/17 08/10/17 Range/Units 06:05 06:05 08:15 WBC Cancelled 5.2 Corrected WBC Cancelled RBC Cancelled 3.75 Hgb Cancelled 12.5 Hct Cancelled 37.4 MCV Cancelled 99.8 H MCH Cancelled 33.3 MCHC Cancelled 33.4 RDW Cancelled 13.1 Plt Count Cancelled 147 MPV Cancelled 8.0 Neut % (Auto) Cancelled Lymph % (Auto) Cancelled [place] % (Auto) Cancelled Eos % (Auto) Cancelled Baso % (Auto) Cancelled Neut # (Auto) Cancelled Lymph # (Auto) Cancelled [place] # (Auto) Cancelled Eos # (Auto) Cancelled Baso # (Auto) Cancelled Add Manual Diff Cancelled Yes Neutrophils % (Manual) Cancelled 84 H Band Neutrophils % Cancelled Lymphocytes % (Manual) Cancelled 14 Atypical Lymphs % Cancelled Monocytes % (Manual) Cancelled 2 L Eosinophils % (Manual) Cancelled Basophils % (Manual) Cancelled Metamyelocytes % Cancelled Myelocytes % Cancelled Promyelocytes % Cancelled Blast Cells % Cancelled Nucleated RBCs Cancelled Differential Comment Cancelled Hypersegmented Neuts Cancelled Smudge Cells Cancelled Toxic Granulation Cancelled Dohle Bodies Cancelled Jossy Rods Cancelled WBC Morphology Comment Cancelled Platelet Estimate Cancelled Clumped Platelets Cancelled Giant Platelets Cancelled Plt Morphology Comment Cancelled Polychromasia Cancelled Hypochromasia Cancelled Poikilocytosis Cancelled Basophilic Stippling Cancelled Anisocytosis Cancelled Microcytosis Cancelled Macrocytosis Cancelled Spherocytes Cancelled Pappenheimer Bodies Cancelled Siderocytes Cancelled Sickle Cells Cancelled Target Cells Cancelled Tear Drop Cells Cancelled Ovalocytes Cancelled Stomatocytes Cancelled Helmet Cells Cancelled Moreno-Throop Bodies Cancelled [place] Rings Cancelled Juliana Cells Cancelled Elliptocytes Cancelled Acanthocytes (Spur) Cancelled Rouleaux Cancelled Schistocytes Cancelled ABG pH 7.42 (7.35-7.45) ABG pCO2 43 (35-45) mmHg ABG pO2 57 L (83-108) mmHg ABG HCO3 27 H (22-26) mmol/L ABG O2 Saturation 90 L (96-97) % ABG Base Excess 3.1 H (-2-2) Ajit Test Passed O2 Delivery Device Nasal cannula Sodium (135-145) mmol/L Potassium (3.5-5.3) mmol/L Chloride (100-110) mmol/L Carbon Dioxide (21-32) mmol/L BUN (7-18) mg/dL Creatinine (0.55-1.02) mg/dL Est Cr Clr Drug Dosing mL/min Estimated GFR (MDRD) (>60) BUN/Creatinine Ratio (9-20) Glucose (80-116) mg/dL Calcium (8.6-10.2) mg/dL Phosphorus (2.6-4.6) mg/dL Magnesium (1.8-2.5) mg/dL 08/11/17 08/11/17 08/11/17 Range/Units 06:40 06:40 06:40 WBC 10.0 Corrected WBC RBC 3.66 Hgb 12.3 Hct 36.2 MCV 99.1 H MCH 33.5 MCHC 33.8 RDW 13.5 Plt Count 170 MPV 7.9 Neut % (Auto) Lymph % (Auto) [place] % (Auto) Eos % (Auto) Baso % (Auto) Neut # (Auto) Lymph # (Auto) [place] # (Auto) Eos # (Auto) Baso # (Auto) Add Manual Diff Yes Neutrophils % (Manual) 85 H Band Neutrophils % Lymphocytes % (Manual) 11 L Atypical Lymphs % Monocytes % (Manual) 4 Eosinophils % (Manual) Basophils % (Manual) Metamyelocytes % Myelocytes % Promyelocytes % Blast Cells % Nucleated RBCs Differential Comment Hypersegmented Neuts Smudge Cells Toxic Granulation Dohle Bodies Jossy Rods WBC Morphology Comment Platelet Estimate Clumped Platelets Giant Platelets Plt Morphology Comment Polychromasia Hypochromasia Poikilocytosis Basophilic Stippling Anisocytosis Microcytosis Macrocytosis Spherocytes Pappenheimer Bodies Siderocytes Sickle Cells Target Cells Tear Drop Cells Ovalocytes Stomatocytes Helmet Cells Moreno-Throop Bodies [place] Rings Juliana Cells Elliptocytes Acanthocytes (Spur) Rouleaux Schistocytes ABG pH (7.35-7.45) ABG pCO2 (35-45) mmHg ABG pO2 (83-108) mmHg ABG HCO3 (22-26) mmol/L ABG O2 Saturation (96-97) % ABG Base Excess (-2-2) Ajit Test O2 Delivery Device Sodium 140 (135-145) mmol/L Potassium 4.5 (3.5-5.3) mmol/L Chloride 105 (100-110) mmol/L Carbon Dioxide 29 (21-32) mmol/L BUN 30 H (7-18) mg/dL Creatinine 0.8 (0.55-1.02) mg/dL Est Cr Clr Drug Dosing 50.85 mL/min Estimated GFR (MDRD) > 60 (>60) BUN/Creatinine Ratio 37.5 H (9-20) Glucose 150 H (80-116) mg/dL Calcium 8.4 L (8.6-10.2) mg/dL Phosphorus 2.7 (2.6-4.6) mg/dL Magnesium 1.9 (1.8-2.5) mg/dL Keith Results Last 24 Hours: Microbiology 08/09/17 19:31 Aerobic Blood Culture - Preliminary Blood - Venous - Lab Draw NO GROWTH AFTER 1 DAY Anaerobic Blood Culture - Preliminary NO GROWTH AFTER 1 DAY 08/09/17 19:25 Aerobic Blood Culture - Preliminary Blood - Venous NO GROWTH AFTER 1 DAY Anaerobic Blood Culture - Preliminary NO GROWTH AFTER 1 DAY Med Orders - Current: Current Medications Acetaminophen (Tylenol) 650 mg PO Q4H PRN PRN Reason: Pain (Mild 1-3)/fever Albuterol (Proventil Neb Soln) 2.5 mg NEB Q4H PRN PRN Reason: Shortness of Breath Albuterol/Ipratropium (Duoneb 3.0-0.5 Mg/3 Ml) 3 ml NEB QIDRT [facility] Last Admin: 08/11/17 07:18 Dose: 3 ml Enoxaparin Sodium (Lovenox) 30 mg SUBCUT Q24H [facility] Last Admin: 08/10/17 21:06 Dose: 30 mg Famotidine (Pepcid) 20 mg PO BEDTIME [facility] Last Admin: 08/10/17 21:06 Dose: 20 mg Folic Acid (Folic Acid) 1 mg PO DAILY [facility] Last Admin: 08/10/17 09:39 Dose: 1 mg Levofloxacin/Dextrose 750 mg/ (Premix) 150 mls @ 150 mls/hr IV Q48H [facility] Potassium Chloride/Dextrose/Sod Cl (D5 1/2 Ns W/ 20 Meq/L Kcl) 1,000 mls @ 75 mls/hr IV Q13H [facility] Last Admin: 08/11/17 03:41 Dose: 75 mls/hr Lorazepam (Ativan) 0.5 mg PO BID PRN PRN Reason: Anxiety Magnesium Oxide (Magnesium Oxide) 400 mg PO DAILY [facility] Meloxicam (Mobic) 15 mg PO DAILY [facility] Methotrexate (Methotrexate) 17.5 mg PO VICENTE [facility] Methylprednisolone Sodium Succinate (Solu-Medrol) 62.5 mg IV Q8H [facility] Multivitamins/Minerals (Vitamins And Minerals) 1 tab PO DAILY [facility] Last Admin: 08/10/17 09:40 Dose: 1 tab Pantoprazole Sodium (Protonix) 40 mg PO ACBREAKFAST [facility] Last Admin: 08/10/17 09:39 Dose: 40 mg Potassium Chloride (Klor-Con M20) 20 meq PO BID [facility] Stop: 08/12/17 09:00 Last Admin: 08/10/17 21:06 Dose: 20 meq Senna/Docusate Sodium (Senna Plus) 2 tab PO DAILY PRN PRN Reason: Constipation Sertraline HCl (Zoloft) 150 mg PO WITHDINNER [facility] Last Admin: 08/10/17 17:17 Dose: 150 mg Simvastatin (Zocor) 10 mg PO WITHDINNER [facility] Last Admin: 08/10/17 17:17 Dose: 10 mg Sodium Chloride (Saline Flush) 10 ml FLUSH ASDIRECTED PRN PRN Reason: Keep Vein Open Last Admin: 08/09/17 19:50 Dose: 10 ml Zolpidem Tartrate (Ambien) 5 mg PO BEDTIME PRN PRN Reason: Sleep Discontinued Medications Acetaminophen (Tylenol Arthritis Pain) 1,300 mg PO BID [facility] Last Admin: 08/10/17 15:21 Dose: Not Given Albuterol/Ipratropium (Duoneb 3.0-0.5 Mg/3 Ml) 3 ml NEB ONETIME ONE Stop: 08/09/17 19:22 Last Admin: 08/09/17 20:03 Dose: 3 ml Sodium Chloride (Normal Saline) 1,000 mls @ 75 mls/hr IV ASDIRECTED [facility] Last Admin: 08/10/17 11:01 Dose: 75 mls/hr Magnesium Sulfate (Magnesium Sulfate 2 Gm In Water 50 Ml) Confirm Administered Dose 50 mls @ as directed .ROUTE .STK-MED ONE Stop: 08/09/17 21:41 Last Admin: 08/09/17 22:01 Dose: Not Given Magnesium Sulfate (Magnesium Sulfate 2 Gm In Water 50 Ml) 50 mls @ 25 mls/hr IV ONETIME ONE Stop: 08/10/17 00:59 Last Admin: 08/09/17 22:49 Dose: 25 mls/hr Levofloxacin/Dextrose 750 mg/ (Premix) 150 mls @ 150 mls/hr IV Q48H [facility] Last Admin: 08/10/17 12:18 Dose: Not Given Infliximab (Remicade) 100 mg IV ASDIRECTED [facility] Levofloxacin (Levaquin) 500 mg PO Q24H [facility] Last Admin: 08/09/17 22:01 Dose: Not Given Levofloxacin (Levaquin) 500 mg PO Q24H [facility] Lorazepam (Ativan) 1 mg IVPUSH ONETIME ONE Stop: 08/09/17 20:56 Last Admin: 08/09/17 21:09 Dose: 1 mg Meloxicam (Mobic) 15 mg PO DAILY [facility] Last Admin: 08/10/17 09:40 Dose: 15 mg Meloxicam (Mobic) 17.5 mg PO DAILY [facility] Meloxicam (Mobic) 15 mg PO NOW ONE Stop: 08/10/17 13:30 Last Admin: 08/10/17 13:49 Dose: 15 mg Methotrexate (Methotrexate) mg PO ASDIRECTED [facility] Methylprednisolone Sodium Succinate (Solu-Medrol) 80 mg IVPUSH ONETIME ONE Stop: 08/09/17 19:22 Last Admin: 08/09/17 19:52 Dose: 80 mg Methylprednisolone Sodium Succinate (Solu-Medrol) 62.5 mg IV Q6H [facility] Last Admin: 08/10/17 11:02 Dose: 62.5 mg Methylprednisolone Sodium Succinate (Solu-Medrol) 62.5 mg IV Q6H [facility] Last Admin: 08/11/17 05:20 Dose: 62.5 mg Non-Formulary Medication (Multivitamin With Minerals [One Daily Plus Minerals]) 1 each PO DAILY [facility] Non-Formulary Medication (Omeprazole [Omeprazole]) 20 mg PO DAILY [facility] Non-Formulary Medication (Ranitidine Hcl [Ranitidine]) 300 mg PO ASDIRECTED [facility] Ondansetron HCl (Zofran) 4 mg IV Q4H PRN PRN Reason: Nausea/Vomiting Potassium Chloride (Klor-Con M20) 20 meq PO ONETIME ONE Stop: 08/09/17 21:30 Last Admin: 08/09/17 22:01 Dose: 20 meq Senna (Senna) 2 mg PO ASDIRECTED [facility] Sertraline HCl (Zoloft) 100 mg PO DAILY [facility] Last Admin: 08/10/17 15:21 Dose: Not Given - Exam Quality Assessment: Supplemental Oxygen, DVT Prophylaxis General: Alert, Oriented, Cooperative HEENT: Pupils Equal. No: Scleral Icterus Neck: Trachea Midline, No JVD, No Thyromegaly Lungs: Crackles (rll), Rales (rll), Wheezing, Other (mild subcostal retraction. able to get IS up to 1200 volume . ) Back Exam: Normal Inspection Extremities: Non-Tender. No: Pedal Edema Skin: Warm, Intact Neurological: No New Focal Deficit, Strength Equal Bilateral. No: Normal Gait Psy/Mental Status: Anxious - Problem List & Annotations (1) Left lower lobe pneumonia SNOMED Code(s): 546070582 Code(s): J18.1 - LOBAR PNEUMONIA, UNSPECIFIED ORGANISM Status: Acute Current Visit: Yes (2) COPD exacerbation SNOMED Code(s): 569426523 Code(s): J44.1 - CHRONIC OBSTRUCTIVE PULMONARY DISEASE W (ACUTE) EXACERBATION Status: Acute Current Visit: Yes (3) Dehydration, moderate SNOMED Code(s): 4118051862950 Code(s): E86.0 - DEHYDRATION Status: Acute Current Visit: Yes (4) Hypotension SNOMED Code(s): 43403785 Code(s): I95.9 - HYPOTENSION, UNSPECIFIED Status: Acute Current Visit: Yes (5) Immunosuppressed status SNOMED Code(s): 77492815 Code(s): D89.9 - DISORDER INVOLVING THE IMMUNE MECHANISM, UNSPECIFIED Status: Acute Current Visit: Yes (6) Hyponatremia SNOMED Code(s): 06290416 Code(s): E87.1 - HYPO-OSMOLALITY AND HYPONATREMIA Status: Acute Current Visit: Yes (7) Hypomagnesemia SNOMED Code(s): 322132310 Code(s): E83.42 - HYPOMAGNESEMIA Status: Acute Current Visit: Yes (8) Weight loss SNOMED Code(s): 57571635, 820111748 Code(s): R63.4 - ABNORMAL WEIGHT LOSS Status: Acute Current Visit: Yes (9) Current smoker SNOMED Code(s): 89385272 Code(s): F17.200 - NICOTINE DEPENDENCE, UNSPECIFIED, UNCOMPLICATED Status: Acute Current Visit: Yes (10) Hypoalbuminemia SNOMED Code(s): 507007111 Code(s): E88.09 - OTH DISORDERS OF PLASMA-PROTEIN METABOLISM, NEC Status: Acute Current Visit: Yes (11) Elevated C-reactive protein (CRP) SNOMED Code(s): 090457644587180 Code(s): R79.82 - ELEVATED C-REACTIVE PROTEIN (CRP) Status: Acute Current Visit: Yes (12) Palliative care status SNOMED Code(s): 309664367 Code(s): Z51.5 - ENCOUNTER FOR PALLIATIVE CARE Status: Acute Current Visit: Yes (13) Elevated BUN SNOMED Code(s): 067760256 Code(s): R79.9 - ABNORMAL FINDING OF BLOOD CHEMISTRY, UNSPECIFIED Status: Acute Current Visit: Yes (14) Macrocytosis without anemia SNOMED Code(s): 469317924 Code(s): D75.89 - OTHER SPECIFIED DISEASES OF BLOOD AND BLOOD-FORMING ORGANS Status: Acute Current Visit: Yes (15) Weakness generalized SNOMED Code(s): 51755424 Code(s): R53.1 - WEAKNESS Status: Acute Current Visit: Yes (16) Nicotine dependence SNOMED Code(s): 13109543 Code(s): F17.200 - NICOTINE DEPENDENCE, UNSPECIFIED, UNCOMPLICATED Status: Chronic Current Visit: Yes Qualifiers: Nicotine product type: cigarettes - Problem List Review Problem List Initiated/Reviewed/Updated: Yes - My Orders Last 24 Hours: My Active Orders 08/10/17 10:24 Docusate Sodium/Sennosides [Senna Plus] 2 tab PO DAILY PRN 08/10/17 14:00 D5 1/2 NS w/ 20 mEq/L KCl 1,000 ml IV Q13H 08/10/17 18:00 Sertraline [Zoloft] 150 mg PO WITHDINNER 08/10/17 21:00 Famotidine [Pepcid] 20 mg PO BEDTIME 08/11/17 07:05 Daily Weight [Height and Weight] [RC] DAILY Intake and Output Strict [RC] Q4H 08/11/17 09:00 Levofloxacin/Dextrose 5%-Water [Levaquin in D5W 750 MG/150 ML] 750 mg Premix Bag 1 bag IV Q48H Magnesium Oxide 400 mg PO DAILY Meloxicam [Mobic] 15 mg PO DAILY 08/11/17 09:57 Chest Abdomen Pelvis w Cont [CT] Routine 08/11/17 11:15 Nicotine [Habitrol] 14 mg TRDERM DAILY 08/11/17 13:00 methylPREDNISolone Sod Succ [Solu-MEDROL] 62.5 mg IV Q8H 08/14/17 09:00 Methotrexate 17.5 mg PO VICENTE - Assessment Assessment:: please see above - Plan Plan:: cont Levaquin to IV q48 hours secondary to renal function. will ct with and wo contrast of c/a/p to evaluate for malignancy and lung status. 30# weight loss in 2 months. due to anxiety, will premedicate with her with ativan iv 30-[address] scan. continue to gently hydrate her and encourage oral nutrition. vitals every 4h. troponin X2 sets negative. no events will DC telemetry. RT helping with nebulizations, incentive spirometry. continue IV steroid burst with taper. Supplemental oxygen to wean down to keep respirations less than 20 and oxygen sats greater than 90%. Extensive education regarding use of tobacco and the importance of cessation. agrees to nicotine patch. Nutrition consult for malnutrition. PT OT for strengthening and ADLs along with discharge planning. Follow electrolytes and repeat as necessary. Supplement as necessary. Will not make any changes to her current SSRI as this has recently been increased, will continue her current anxiolytic and make adjustments if needed. At the present time she wishes to remain full CODE STATUS however I did discuss that I do not believe she would benefit from any form of mechanical ventilation or CPR as this would only worsen comorbidities should she survive a full resuscitative effort. Will continue GI prophylaxis and DVT prophylaxis as appropriate. Anticipate hospital stay additional 24-48 hours with the potential need for swing bed post discharge from inpatient status. She and her have decline any form of home health services upon discharge. All the above was discussed with the patient . Questions were answered. Additional information was provided and we will proceed accordingly.
[2017-08-11] MEDS: Pantoprazole 40 MG Tab.CR PO SCH (08:05)
[2017-08-11] MEDS: Folic Acid 1 MG Tab PO SCH (08:33)
[2017-08-11] MEDS: Potassium Chloride 20 MEQ Tab.ER PO SCH ×2 (08:33→21:40)
[2017-08-11] MEDS: Magnesium Oxide 400 MG Tab PO SCH (08:33)
[2017-08-11] MEDS: Multivitamins, Therapeutic with Minerals Tab PO SCH (08:33)
[2017-08-11] MEDS ORDERED: Levofloxacin/Dextrose 5%-Water 750 MG in Premix Bag 1 BAG IV SCH (09:00)
[2017-08-11] MEDS ORDERED: LORazepam 2 MG/ML SDV IVPUSH ONE (10:03)
[2017-08-11] MEDS ORDERED: Iopamidol 755 Mg/ML 75 ML Bottle IV ONE (11:52)
[2017-08-11] MEDS ORDERED: Barium Sulfate 98% Powder for Susp 340 GM Bottle PO SCH (12:00)
[2017-08-11] MEDS: Nicotine 14 MG/24 Hr Patch TRDERM SCH (12:31)
[2017-08-11] MEDS ORDERED: Loperamide 2 MG Tab PO ONE (18:04)
[2017-08-11] MEDS ORDERED: Loperamide 2 MG Cap ONE (18:31)
[2017-08-11] MEDS: Sertraline 50 MG Tab PO SCH (18:35)
[2017-08-11] MEDS: Simvastatin 10 MG Tab PO SCH (18:36)
[2017-08-11] MEDS ORDERED: Loperamide 2 MG Cap PO ONE (18:45)
[2017-08-11] MEDS: Famotidine 20 MG Tab PO SCH (21:40)
[2017-08-11] MEDS: Enoxaparin 30 MG/0.3 ML Syringe SUBCUT SCH (21:41)
[2017-08-11] MEDS: Sodium Chloride 0.9% 10 ML Syringe FLUSH PRN (21:41)
[2017-08-11] MEDS ORDERED: guaiFENesin/Dextromethorphan 100-10 MG/5 ML Soln 5 ML Cup PO PRN (22:49)
[2017-08-12] MEDS: methylPREDNISolone Sodium Succinate 125 MG/2 ML SDV IV SCH (04:34)
[2017-08-12] MEDS: Sodium Chloride 0.9% 10 ML Syringe FLUSH PRN (04:35)
[2017-08-12] MEDS: Albuterol/Ipratropium 3.0-0.5 MG/3 ML Neb Soln NEB SCH ×2 (07:17→11:10)
[2017-08-12] MEDS: Pantoprazole 40 MG Tab.CR PO SCH (07:36)
--- NOTE | 2017-08-12 08:49 | CT ---
INDICATION: COPD, cachexia. CT CHEST, ABDOMEN, AND PELVIS WITH CONTRAST: Spiral 2.5-mm axial sections were obtained through the chest, abdomen, and pelvis with oral and IV contrast (75 mL [id number] at 2 mL per second), with sagittal and coronal reconstructions. Total Exam DLP = 532.15 mGy-cm. The current study is 08/11/2017 - no comparisons were available. CT CHEST: Examination of the chest was obtained by CT, as noted above, and revealed some minimal scarring apical right lung and medially. There is some patchy infiltration in the middle lobe and to a lesser extent in the lingula, which may be fibrotic in nature. Some atelectatic change and possibly minimal pneumonia could be present in these areas, however, possibly with some minimal consolidating pneumonia, as there is an air bronchogram in the medial inferior aspect of the middle lobe. A definite mass is not identified in the lungs. There is some additional basilar infiltrative change in the right lower lobe with an appearance of a mild degree of pleuritis and similar, but less prominent findings at the left lower lobe at the posterior lung base. These findings may be on the basis of areas of patchy pneumonia due to aspiration, but should be correlated clinically. The heart did not appear enlarged. No pericardial effusion was seen. No mediastinal mass was identified, although there is some mediastinal lymphadenopathy which is moderate and nonspecific. It could be on the basis of infection. Neoplasia cannot be entirely excluded, however. Calcifications are noted in the aorta. IMPRESSION: Patchy areas of infiltrate are noted at the lung bases and may represent areas of pneumonia in the middle lobe, lingula, and both lower lobes. Pneumonia and pleuritis is suggested at the right lower lobe at the lung base and also at the left lung base to a lesser extent. A minimal area of consolidating pneumonia and/or atelectasis is suggested at the medial lung base at the middle lobe. CT ABDOMEN AND PELVIS: Examination of the abdomen and pelvis was obtained by CT , as noted above. The gallbladder is absent, compatible with history of its removal. The liver was unremarkable. The adrenal glands appear to be fairly normal, although not well visualized. 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 The pancreas appears to be grossly normal. Calcifications are noted in the aorta and minimally at the superior mesenteric artery and iliac arteries. The aorta is rather tortuous, with a severe scoliosis noted - dextroconvex rotoscoliosis of the lumbar spine. Degenerative disk disease is noted at thoracolumbar - lumbosacral levels, with vacuum disk phenomena at all those levels. The urinary bladder was unremarkable. The uterus is absent, compatible with history of its removal. Diverticulosis is suggested at the descending and sigmoid colon, without definite evidence of diverticulitis. No evidence of bowel obstruction or free air was identified. Renal cortical scarring of mild degree is noted, with no significant appearing renal masses identified. No definite evidence of obstructive uropathy was seen. It is difficult to exclude a mild degree of gastric wall thickening in the fundal area and body. This should be correlated clinically. No other organomegaly, mass lesions, or free fluid collections were identified in the abdomen or pelvis. IMPRESSION: 1. Diverticulosis without definite evidence of diverticulitis descending and sigmoid. 2. Fairly severe scoliosis and degenerative disk disease thoracolumbosacral spine. 3. ASD. 4. Post cholecystectomy. 5. Post hysterectomy. 6. Cannot exclude thickening of the gastric wall mucosa - correlate clinically. 7. Renal cortical scarring of mild degree. MTDD
[2017-08-12] MEDS: Folic Acid 1 MG Tab PO SCH (09:16)
[2017-08-12] MEDS: Magnesium Oxide 400 MG Tab PO SCH (09:16)
[2017-08-12] MEDS: Nicotine 14 MG/24 Hr Patch TRDERM SCH (09:16)
[2017-08-12] MEDS: Multivitamins, Therapeutic with Minerals Tab PO SCH (09:17)
--- NOTE | 2017-08-12 10:11 | PCM.PN ---
- General Info Date of Service: 08/12/17 Admission Dx/Problem (Free Text): patient states she's doing better. She says she is breathing oxygen and about 60 % of her normal. She would like to go home. She is occasional cough. No fevers, chills, leg swelling or chest pain. - Patient Data Vitals - Most Recent: Last Vital Signs Temp 98.1 F 08/12/17 07:34 Pulse 86 08/12/17 07:34 Resp 22 H 08/12/17 07:34 BP 136/70 08/12/17 07:34 Pulse Ox 91 L 08/12/17 07:34 Weight - Most Recent: 126 lb 12.8 oz I&O - Last 24 Hours: Intake & Output 08/11/17 08/12/17 08/12/17 22:59 06:59 14:59 Intake Total 300 200 Output Total 1 200 Balance 299 0 Lab Results Last 24 Hours: Laboratory Results - last 24 hr 08/12/17 Range/Units 06:15 Sodium 139 (135-145) mmol/L Potassium 5.2 (3.5-5.3) mmol/L Chloride 104 (100-110) mmol/L Carbon Dioxide 29 (21-32) mmol/L BUN 29 H (7-18) mg/dL Creatinine 0.8 (0.55-1.02) mg/dL Est Cr Clr Drug Dosing 50.85 mL/min Estimated GFR (MDRD) > 60 (>60) BUN/Creatinine Ratio 36.3 H (9-20) Glucose 108 (80-116) mg/dL Calcium 8.6 (8.6-10.2) mg/dL Keith Results Last 24 Hours: Microbiology 08/09/17 19:31 Aerobic Blood Culture - Preliminary Blood - Venous - Lab Draw NO GROWTH AFTER 2 DAYS Anaerobic Blood Culture - Preliminary NO GROWTH AFTER 2 DAYS 08/09/17 19:25 Aerobic Blood Culture - Preliminary Blood - Venous NO GROWTH AFTER 2 DAYS Anaerobic Blood Culture - Preliminary NO GROWTH AFTER 2 DAYS Med Orders - Current: Current Medications Acetaminophen (Tylenol) 650 mg PO Q4H PRN PRN Reason: Pain (Mild 1-3)/fever Albuterol (Proventil Neb Soln) 2.5 mg NEB Q4H PRN PRN Reason: Shortness of Breath Albuterol/Ipratropium (Duoneb 3.0-0.5 Mg/3 Ml) 3 ml NEB QIDRT [facility] Last Admin: 08/12/17 07:17 Dose: 3 ml Enoxaparin Sodium (Lovenox) 30 mg SUBCUT Q24H [facility] Last Admin: 08/11/17 21:41 Dose: 30 mg Famotidine (Pepcid) 20 mg PO BEDTIME [facility] Last Admin: 08/11/17 21:40 Dose: 20 mg Folic Acid (Folic Acid) 1 mg PO DAILY [facility] Last Admin: 08/12/17 09:16 Dose: 1 mg Guaifenesin/Phenylephrine HCl (Robitussin Dm) 5 ml PO Q4H PRN PRN Reason: Cough Last Admin: 08/11/17 23:31 Dose: 5 ml Levofloxacin/Dextrose 750 mg/ (Premix) 150 mls @ 150 mls/hr IV Q48H [facility] Last Admin: 08/11/17 08:09 Dose: 150 mls/hr Lorazepam (Ativan) 0.5 mg PO BID PRN PRN Reason: Anxiety Magnesium Oxide (Magnesium Oxide) 400 mg PO DAILY [facility] Last Admin: 08/12/17 09:16 Dose: 400 mg Meloxicam (Mobic) 15 mg PO DAILY [facility] Last Admin: 08/12/17 09:16 Dose: 15 mg Methotrexate (Methotrexate) 17.5 mg PO [facility] Methylprednisolone Sodium Succinate (Solu-Medrol) 62.5 mg IV Q8H [facility] Last Admin: 08/12/17 04:34 Dose: 62.5 mg Multivitamins/Minerals (Vitamins And Minerals) 1 tab PO DAILY [facility] Last Admin: 08/12/17 09:17 Dose: 1 tab Nicotine (Habitrol) 14 mg TRDERM DAILY [facility] Last Admin: 08/12/17 09:16 Dose: 14 mg Pantoprazole Sodium (Protonix) 40 mg PO ACBREAKFAST [facility] Last Admin: 08/12/17 07:36 Dose: 40 mg Senna/Docusate Sodium (Senna Plus) 2 tab PO DAILY PRN PRN Reason: Constipation Sertraline HCl (Zoloft) 150 mg PO WITHDINNER [facility] Last Admin: 08/11/17 18:35 Dose: 150 mg Simvastatin (Zocor) 10 mg PO WITHDINNER [facility] Last Admin: 08/11/17 18:36 Dose: 10 mg Sodium Chloride (Saline Flush) 10 ml FLUSH ASDIRECTED PRN PRN Reason: Keep Vein Open Last Admin: 08/12/17 04:35 Dose: 10 ml Zolpidem Tartrate (Ambien) 5 mg PO BEDTIME PRN PRN Reason: Sleep Discontinued Medications Acetaminophen (Tylenol Arthritis Pain) 1,300 mg PO BID [facility] Last Admin: 08/10/17 15:21 Dose: Not Given Albuterol/Ipratropium (Duoneb 3.0-0.5 Mg/3 Ml) 3 ml NEB ONETIME ONE Stop: 08/09/17 19:22 Last Admin: 08/09/17 20:03 Dose: 3 ml Sodium Chloride (Normal Saline) 1,000 mls @ 75 mls/hr IV ASDIRECTED [facility] Last Admin: 08/10/17 11:01 Dose: 75 mls/hr Magnesium Sulfate (Magnesium Sulfate 2 Gm In Water 50 Ml) Confirm Administered Dose 50 mls @ as directed .ROUTE .STK-MED ONE Stop: 08/09/17 21:41 Last Admin: 08/09/17 22:01 Dose: Not Given Magnesium Sulfate (Magnesium Sulfate 2 Gm In Water 50 Ml) 50 mls @ 25 mls/hr IV ONETIME ONE Stop: 08/10/17 00:59 Last Admin: 08/09/17 22:49 Dose: 25 mls/hr Levofloxacin/Dextrose 750 mg/ (Premix) 150 mls @ 150 mls/hr IV Q48H [facility] Last Admin: 08/10/17 12:18 Dose: Not Given Potassium Chloride/Dextrose/Sod Cl (D5 1/2 Ns W/ 20 Meq/L Kcl) 1,000 mls @ 75 mls/hr IV Q13H [facility] Last Admin: 08/11/17 20:00 Dose: Not Given Infliximab (Remicade) 100 mg IV ASDIRECTED [facility] Iopamidol (Isovue-370 (76%)) 75 ml IV ONETIME ONE Stop: 08/11/17 11:53 Last Admin: 08/11/17 12:57 Dose: 75 ml Levofloxacin (Levaquin) 500 mg PO Q24H [facility] Last Admin: 08/09/17 22:01 Dose: Not Given Levofloxacin (Levaquin) 500 mg PO Q24H [facility] Loperamide HCl (Imodium Ad) 4 mg PO ONETIME ONE Stop: 08/11/17 18:05 Last Admin: 08/11/17 18:45 Dose: Not Given Loperamide HCl (Imodium) Confirm Administered Dose 4 mg .ROUTE .STK-MED ONE Stop: 08/11/17 18:32 Loperamide HCl (Imodium) 4 mg PO ONETIME ONE Stop: 08/11/17 18:46 Last Admin: 08/11/17 18:44 Dose: 4 mg Lorazepam (Ativan) 1 mg IVPUSH ONETIME ONE Stop: 08/09/17 20:56 Last Admin: 08/09/17 21:09 Dose: 1 mg Lorazepam (Ativan) 1.5 mg IVPUSH ONETIME ONE Stop: 08/11/17 10:04 Last Admin: 08/11/17 11:09 Dose: 1.5 mg Meloxicam (Mobic) 15 mg PO DAILY [facility] Last Admin: 08/10/17 09:40 Dose: 15 mg Meloxicam (Mobic) 17.5 mg PO DAILY [facility] Meloxicam (Mobic) 15 mg PO NOW ONE Stop: 08/10/17 13:30 Last Admin: 08/10/17 13:49 Dose: 15 mg Methotrexate (Methotrexate) mg PO ASDIRECTED [facility] Methylprednisolone Sodium Succinate (Solu-Medrol) 80 mg IVPUSH ONETIME ONE Stop: 08/09/17 19:22 Last Admin: 08/09/17 19:52 Dose: 80 mg Methylprednisolone Sodium Succinate (Solu-Medrol) 62.5 mg IV Q6H [facility] Last Admin: 08/10/17 11:02 Dose: 62.5 mg Methylprednisolone Sodium Succinate (Solu-Medrol) 62.5 mg IV Q6H [facility] Last Admin: 08/11/17 05:20 Dose: 62.5 mg Non-Formulary Medication (Multivitamin With Minerals [One Daily Plus Minerals]) 1 each PO DAILY [facility] Non-Formulary Medication (Omeprazole [Omeprazole]) 20 mg PO DAILY [facility] Non-Formulary Medication (Ranitidine Hcl [Ranitidine]) 300 mg PO ASDIRECTED [facility] Ondansetron HCl (Zofran) 4 mg IV Q4H PRN PRN Reason: Nausea/Vomiting Potassium Chloride (Klor-Con M20) 20 meq PO BID [facility] Stop: 08/12/17 09:00 Last Admin: 04/12/18 21:40 Dose: 20 meq Potassium Chloride (Klor-Con M20) 20 meq PO ONETIME ONE Stop: 08/09/17 21:30 Last Admin: 08/09/17 22:01 Dose: 20 meq Senna (Senna) 2 mg PO ASDIRECTED [facility] Sertraline HCl (Zoloft) 100 mg PO DAILY [facility] Last Admin: 08/10/17 15:21 Dose: Not Given - Exam General: Alert, Oriented, Cooperative Neck: Supple Lungs: Clear to Auscultation, Wheezing Cardiovascular: Regular Rate, Regular Rhythm, No Murmurs GI/Abdominal Exam: Soft, Non-Tender Extremities: No Pedal Edema - Problem List & Annotations (1) COPD exacerbation SNOMED Code(s): 980797809 Code(s): J44.1 - CHRONIC OBSTRUCTIVE PULMONARY DISEASE W (ACUTE) EXACERBATION Status: Acute Current Visit: Yes (2) Current smoker SNOMED Code(s): 20335226 Code(s): F17.200 - NICOTINE DEPENDENCE, UNSPECIFIED, UNCOMPLICATED Status: Acute Current Visit: Yes (3) Left lower lobe pneumonia SNOMED Code(s): 481965031 Code(s): J18.1 - LOBAR PNEUMONIA, UNSPECIFIED ORGANISM Status: Acute Current Visit: Yes (4) Palliative care status SNOMED Code(s): 834044817 Code(s): Z51.5 - ENCOUNTER FOR PALLIATIVE CARE Status: Acute Current Visit: Yes - Problem List Review Problem List Initiated/Reviewed/Updated: Yes - Plan Plan:: discharge to home on Levaquin and tapering dose of Prednisone.
--- NOTE | 2017-08-12 10:50 | PCM.DCSUM1 ---
Discharge Summary - Hospital Course Free Text/Narrative:: hospital course-patient was put on steroids and antibiotics. Did quite well. Was on O2 initially he was able to wean off O2. Cough, better. Patient states she was below 60% of her normal breathing and wanted to go home. She is a long time smoker. She's on the patches she's going to try to quit smoking. He was offered home health and she deferred it. She'll follow-up with her primary provider in a week. Brief History: Pleasant 77-year-old female who resides in her own home with her who is diligent her cares. States she has been having increased weakness with a cough that is productive change in sputum color roughly the last week. She wasn't having any fevers or chills by her appetite is significantly decreased and she wasn't taking in much for fluids. Respirations became slightly more labored and she [facility] x-ray was consistent with early onset pneumonia in the setting of COPD. She was started on oral Levaquin 500 mg daily. She was sent home and is taken one dose of her antibiotic and over the course of the evening she does not feel any improvement and also became more weak when she presented back to the clinic. At that point she was noted to be slightly hypotensive and received a normal saline bolus while at the clinic due to a low blood pressure reported as 88/50 mmHg that did improve to greater than 115 systolic. There was no significant tachycardia or bradycardia noted on EKG and sats remained in the low 90s. That point, it was deemed she be evaluated in the ER where his CRP was noted to be elevated to 24.6 with a background setting of rheumatoid arthritis. She's remained afebrile with normal white count. According to family depression has worsened over the last several weeks for which she has had significant decreased appetite along with somnolence. This is resulted in roughly a 6 pound weight loss in the last week. She is currently being titrated on sertraline with a recent increased dose from 100 mg daily to 150 mg daily. She also has underlying anxiety for which she has been on lorazepam long-term however this is being tapered as her SSRI is increased. Severe comorbidities include COPD with continued tobacco smoking a pack per day, known hyperinflation and air trapping of the lungs, cardiovascular disease, rheumatologic disease, malnutrition, depression worsening with underlying anxiety, active infection, mild dehydration, iatrogenic suppression and polypharmacy. - Discharge Data Discharge Date: 08/12/17 Discharge Disposition: Home, Self-Care 01 Condition: Good - Discharge Diagnosis/Problem(s) (1) COPD exacerbation SNOMED Code(s): 736898614 ICD Code: J44.1 - CHRONIC OBSTRUCTIVE PULMONARY DISEASE W (ACUTE) EXACERBATION Status: Acute Current Visit: Yes (2) Current smoker SNOMED Code(s): 37847576 ICD Code: F17.200 - NICOTINE DEPENDENCE, UNSPECIFIED, UNCOMPLICATED Status : Acute Current Visit: Yes (3) Left lower lobe pneumonia SNOMED Code(s): 655996495 ICD Code: J18.1 - LOBAR PNEUMONIA, UNSPECIFIED ORGANISM Status: Acute Current Visit: Yes (4) Palliative care status SNOMED Code(s): 383981669 ICD Code: Z51.5 - ENCOUNTER FOR PALLIATIVE CARE Status: Acute Current Visit: Yes - Patient Instructions Diet: Regular Diet as Tolerated Activity: As Tolerated Driving: Do Not Drive Showering/Bathing: May Shower Notify Provider of: Increased Pain Other/Special Instructions: 1. Patient was offered home health and deferred. 2. Follow-up with Shira Rainey in 7-10 days. - Discharge Plan Prescriptions/Med Rec: Levofloxacin [Levaquin] 750 mg PO Q48H #4 tab Home Medications: Home Meds Folic Acid 1 mg PO DAILY 10/22/13 [History] InFLIXimab [Remicade] 0 mg IV ASDIRECTED 10/22/13 [History] Meloxicam [Mobic] 15 mg PO DAILY 10/22/13 [History] Methotrexate 17.5 mg PO VICENTE 10/22/13 [History] Omeprazole 20 mg PO ACBREAKFAST 10/22/13 [History] Simvastatin [Zocor] 10 mg PO DAILY@1800 10/22/13 [History] Acetaminophen [Tylenol Arthritis Pain] 1,300 mg PO BID PRN 10/23/13 [History] LORazepam 0.5 mg PO DAILY PRN 08/09/17 [History] Ranitidine HCl [Ranitidine] 300 mg PO BEDTIME 08/09/17 [History] Sertraline [Zoloft] 150 mg PO DAILY@1800 08/09/17 [History] Advair Hfa 115/21 2 puff IH BID 08/10/17 [History] Beta-Carotene(A) W-C & E/Min [Vision Vitamins] 1 tab PO DAILY 08/10/17 [History] Calcium Carbonate/Vitamin D3 [Calcium 500-Vit D3 600 Caplet] 1 tab PO BIDMEALS 08/10/17 [History] Cyanocobalamin (Vitamin B-12) [Vitamin B-12] 1,000 mcg PO DAILY 08/10/17 [ History] Magnesium Oxide [Magnesium] 400 mg PO DAILY 08/10/17 [History] Sennosides/Docusate Sodium [Senna S Tablet] 2 tab PO DAILY PRN 08/10/17 [History ] Levofloxacin [Levaquin] 750 mg PO Q48H #4 tab 08/12/17 [Rx] Forms: ED Department Discharge Referrals: Bailey Rainey, [employer] [Primary Care Provider] - - Discharge Summary/Plan Comment DC Time >30 min.: No - Patient Data Vitals - Most Recent: Last Vital Signs Temp 98.1 F 08/12/17 07:34 Pulse 86 08/12/17 07:34 Resp 22 H 08/12/17 07:34 BP 136/70 08/12/17 07:34 Pulse Ox 91 L 08/12/17 07:34 Weight - Most Recent: 126 lb 12.8 oz I&O - Last 24 hours: Intake & Output 08/11/17 08/12/17 08/12/17 22:59 06:59 14:59 Intake Total 300 200 Output Total 1 200 Balance 299 0 Lab Results - Last 24 hrs: Laboratory Results - last 24 hr 08/12/17 Range/Units 06:15 Sodium 139 (135-145) mmol/L Potassium 5.2 (3.5-5.3) mmol/L Chloride 104 (100-110) mmol/L Carbon Dioxide 29 (21-32) mmol/L BUN 29 H (7-18) mg/dL Creatinine 0.8 (0.55-1.02) mg/dL Est Cr Clr Drug Dosing 50.85 mL/min Estimated GFR (MDRD) > 60 (>60) BUN/Creatinine Ratio 36.3 H (9-20) Glucose 108 (80-116) mg/dL Calcium 8.6 (8.6-10.2) mg/dL [facility] Results - Last 24 hrs: Microbiology 08/09/17 19:31 Aerobic Blood Culture - Preliminary Blood - Venous - Lab Draw NO GROWTH AFTER 2 DAYS Anaerobic Blood Culture - Preliminary NO GROWTH AFTER 2 DAYS 08/09/17 19:25 Aerobic Blood Culture - Preliminary Blood - Venous NO GROWTH AFTER 2 DAYS Anaerobic Blood Culture - Preliminary NO GROWTH AFTER 2 DAYS Med Orders - Current: Current Medications Acetaminophen (Tylenol) 650 mg PO Q4H PRN PRN Reason: Pain (Mild 1-3)/fever Albuterol (Proventil Neb Soln) 2.5 mg NEB Q4H PRN PRN Reason: Shortness of Breath Albuterol/Ipratropium (Duoneb 3.0-0.5 Mg/3 Ml) 3 ml NEB QIDRT [facility] Last Admin: 08/12/17 07:17 Dose: 3 ml Enoxaparin Sodium (Lovenox) 30 mg SUBCUT Q24H [facility] Last Admin: 08/11/17 21:41 Dose: 30 mg Famotidine (Pepcid) 20 mg PO BEDTIME [facility] Last Admin: 08/11/17 21:40 Dose: 20 mg Folic Acid (Folic Acid) 1 mg PO DAILY [facility] Last Admin: 08/12/17 09:16 Dose: 1 mg Guaifenesin/Phenylephrine HCl (Robitussin Dm) 5 ml PO Q4H PRN PRN Reason: Cough Last Admin: 08/11/17 23:31 Dose: 5 ml Levofloxacin/Dextrose 750 mg/ (Premix) 150 mls @ 150 mls/hr IV Q48H [facility] Last Admin: 08/11/17 08:09 Dose: 150 mls/hr Lorazepam (Ativan) 0.5 mg PO BID PRN PRN Reason: Anxiety Magnesium Oxide (Magnesium Oxide) 400 mg PO DAILY [facility] Last Admin: 08/12/17 09:16 Dose: 400 mg Meloxicam (Mobic) 15 mg PO DAILY [facility] Last Admin: 08/12/17 09:16 Dose: 15 mg Methotrexate (Methotrexate) 17.5 mg PO [facility] Methylprednisolone Sodium Succinate (Solu-Medrol) 62.5 mg IV Q8H [facility] Last Admin: 08/12/17 04:34 Dose: 62.5 mg Multivitamins/Minerals (Vitamins And Minerals) 1 tab PO DAILY [facility] Last Admin: 08/12/17 09:17 Dose: 1 tab Nicotine (Habitrol) 14 mg TRDERM DAILY [facility] Last Admin: 08/12/17 09:16 Dose: 14 mg Pantoprazole Sodium (Protonix) 40 mg PO ACBREAKFAST [facility] Last Admin: 08/12/17 07:36 Dose: 40 mg Senna/Docusate Sodium (Senna Plus) 2 tab PO DAILY PRN PRN Reason: Constipation Sertraline HCl (Zoloft) 150 mg PO WITHDINNER [facility] Last Admin: 08/11/17 18:35 Dose: 150 mg Simvastatin (Zocor) 10 mg PO WITHDINNER [facility] Last Admin: 08/11/17 18:36 Dose: 10 mg Sodium Chloride (Saline Flush) 10 ml FLUSH ASDIRECTED PRN PRN Reason: Keep Vein Open Last Admin: 08/12/17 04:35 Dose: 10 ml Zolpidem Tartrate (Ambien) 5 mg PO BEDTIME PRN PRN Reason: Sleep Discontinued Medications Acetaminophen (Tylenol Arthritis Pain) 1,300 mg PO BID [facility] Last Admin: 08/10/17 15:21 Dose: Not Given Albuterol/Ipratropium (Duoneb 3.0-0.5 Mg/3 Ml) 3 ml NEB ONETIME ONE Stop: 08/09/17 19:22 Last Admin: 08/09/17 20:03 Dose: 3 ml Sodium Chloride (Normal Saline) 1,000 mls @ 75 mls/hr IV ASDIRECTED [facility] Last Admin: 08/10/17 11:01 Dose: 75 mls/hr Magnesium Sulfate (Magnesium Sulfate 2 Gm In Water 50 Ml) Confirm Administered Dose 50 mls @ as directed .ROUTE .STK-MED ONE Stop: 08/09/17 21:41 Last Admin: 08/09/17 22:01 Dose: Not Given Magnesium Sulfate (Magnesium Sulfate 2 Gm In Water 50 Ml) 50 mls @ 25 mls/hr IV ONETIME ONE Stop: 08/10/17 00:59 Last Admin: 08/09/17 22:49 Dose: 25 mls/hr Levofloxacin/Dextrose 750 mg/ (Premix) 150 mls @ 150 mls/hr IV Q48H [facility] Last Admin: 08/10/17 12:18 Dose: Not Given Potassium Chloride/Dextrose/Sod Cl (D5 1/2 Ns W/ 20 Meq/L Kcl) 1,000 mls @ 75 mls/hr IV Q13H [facility] Last Admin: 08/11/17 20:00 Dose: Not Given Infliximab (Remicade) 100 mg IV ASDIRECTED [facility] Iopamidol (Isovue-370 (76%)) 75 ml IV ONETIME ONE Stop: 08/11/17 11:53 Last Admin: 08/11/17 12:57 Dose: 75 ml Levofloxacin (Levaquin) 500 mg PO Q24H [facility] Last Admin: 08/09/17 22:01 Dose: Not Given Levofloxacin (Levaquin) 500 mg PO Q24H [facility] Loperamide HCl (Imodium Ad) 4 mg PO ONETIME ONE Stop: 08/11/17 18:05 Last Admin: 08/11/17 18:45 Dose: Not Given Loperamide HCl (Imodium) Confirm Administered Dose 4 mg .ROUTE .STK-MED ONE Stop: 08/11/17 18:32 Loperamide HCl (Imodium) 4 mg PO ONETIME ONE Stop: 08/11/17 18:46 Last Admin: 08/11/17 18:44 Dose: 4 mg Lorazepam (Ativan) 1 mg IVPUSH ONETIME ONE Stop: 08/09/17 20:56 Last Admin: 08/09/17 21:09 Dose: 1 mg Lorazepam (Ativan) 1.5 mg IVPUSH ONETIME ONE Stop: 08/11/17 10:04 Last Admin: 08/11/17 11:09 Dose: 1.5 mg Meloxicam (Mobic) 15 mg PO DAILY [facility] Last Admin: 08/10/17 09:40 Dose: 15 mg Meloxicam (Mobic) 17.5 mg PO DAILY [facility] Meloxicam (Mobic) 15 mg PO NOW ONE Stop: 08/10/17 13:30 Last Admin: 08/10/17 13:49 Dose: 15 mg Methotrexate (Methotrexate) mg PO ASDIRECTED [facility] Methylprednisolone Sodium Succinate (Solu-Medrol) 80 mg IVPUSH ONETIME ONE Stop: 08/09/17 19:22 Last Admin: 08/09/17 19:52 Dose: 80 mg Methylprednisolone Sodium Succinate (Solu-Medrol) 62.5 mg IV Q6H [facility] Last Admin: 08/10/17 11:02 Dose: 62.5 mg Methylprednisolone Sodium Succinate (Solu-Medrol) 62.5 mg IV Q6H [facility] Last Admin: 08/11/17 05:20 Dose: 62.5 mg Non-Formulary Medication (Multivitamin With Minerals [One Daily Plus Minerals]) 1 each PO DAILY [facility] Non-Formulary Medication (Omeprazole [Omeprazole]) 20 mg PO DAILY [facility] Non-Formulary Medication (Ranitidine Hcl [Ranitidine]) 300 mg PO ASDIRECTED [facility] Ondansetron HCl (Zofran) 4 mg IV Q4H PRN PRN Reason: Nausea/Vomiting Potassium Chloride (Klor-Con M20) 20 meq PO BID [facility] Stop: 08/12/17 09:00 Last Admin: 08/11/17 21:40 Dose: 20 meq Potassium Chloride (Klor-Con M20) 20 meq PO ONETIME ONE Stop: 08/09/17 21:30 Last Admin: 08/09/17 22:01 Dose: 20 meq Senna (Senna) 2 mg PO ASDIRECTED [facility] Sertraline HCl (Zoloft) 100 mg PO DAILY [facility] Last Admin: 08/10/17 15:21 Dose: Not Given
[2017-08-12] MEDS: Potassium Chloride 20 MEQ Tab.ER PO SCH (11:48)
[2017-08-14] MEDS ORDERED: Methotrexate 2.5 MG Tab PO SCH (09:00)
== END 2017-08-12 13:38 | disposition home or self-care (01) | DRG 190 ==
LOC: FB.ED 18:07 → FB.MS 21:07
PROVIDERS: ADMIT Emergency Medicine; ATTEND Family Medicine
DX: J44.0 Chronic obstructive pulmonary disease with (acute) lower respiratory infection (principal); J18.9 Pneumonia, unspecified organism; J18.1 Lobar pneumonia, unspecified organism; E87.1 Hypo-osmolality and hyponatremia; E46 Unspecified protein-calorie malnutrition; J44.1 Chronic obstructive pulmonary disease with (acute) exacerbation; F17.210 Nicotine dependence, cigarettes, uncomplicated; D89.9 Disorder involving the immune mechanism, unspecified; M06.9 Rheumatoid arthritis, unspecified; E86.0 Dehydration; E83.42 Hypomagnesemia; R53.1 Weakness; Z68.20 Body mass index [BMI] 20.0-20.9, adult; I95.9 Hypotension, unspecified; E88.09 Other disorders of plasma-protein metabolism, not elsewhere classified; R79.82 Elevated C-reactive protein (CRP); D75.89 Other specified diseases of blood and blood-forming organs; R05 Cough; R79.9 Abnormal finding of blood chemistry, unspecified; K21.9 Gastro-esophageal reflux disease without esophagitis; F41.9 Anxiety disorder, unspecified; F32.9 Major depressive disorder, single episode, unspecified
CPT/HCPCS: 36415; 36600; 71046; 71260; 74177; 80048; 80053; 82803; 83605; 83735; 83880; 84100; 84443; 84484; 85025; 86140; 87040; 93005; 93010; 94150; 94640; 96374; 96375; 99285; A9270; A9270-GY; J1650; J1956; J2060; J2930; J3475; J3480; J7040; J7050; J7620; Q9967